=== PATIENT | male | born 1930 | race Caucasian/White ===

== ENCOUNTER → 2017-05-19 | Outpatient (CLI) | payer MEDICARE ==
[2016-08-02 07:10] VITALS: BP 116/63
[~2017-05-19] MED LIST: ASPI-630 PO; CARV25TA PO; COLC0.6T34 PO; ENAL5TAB PO; FURO20TA3 PO; GLIM1TAB2 PO; HYDR-971 PO; LORA10TA3 PO; PRED20TA PO; SIMV20TA3 PO; WARF2.5T71 PO; WARF5TAB7 PO
[2017-05-19 08:33] LABS: ALBUMIN 3.6 g/dL (3.4-5.0); CALCIUM 8.5 mg/dL (8.5-10.1); CREATININE 1.7 mg/dL (0.7-1.3); GFR 38.5; PHOSPHORUS 3.1 mg/dL (2.6-4.7); POTASSIUM 4.2 mmol/L (3.5-5.1)
[2017-05-19 19:13] LABS: CALCIUM PTH 8.8 mg/dL (8.6-10.2); CREATININE PTH 1.54 mg/dL (0.76-1.27); PTH INTACT 118 pg/mL (15-65)
== END | disposition home or self-care (01) ==
LOC: LAB 07:03
PROVIDERS: ATTEND Family Medicine
DX: N25.81 Secondary hyperparathyroidism of renal origin (principal)
CPT/HCPCS: 36415; 80069; 82306; 83970

== ENCOUNTER 2017-06-04 04:54 | Emergency (ER) | payer MEDICARE ==
[2017-06-04 05:05] VITALS: BP 141/93
[2017-06-04] MEDS ORDERED: OXYMETAZOLINE 0.05% NASAL SPRAY 15ML BOTTLE. NS ONE (05:15)
--- NOTE | 2017-06-04 06:02 | PHYS DOC ---
Past History Past Medical History: A-Fib, Anemia, Arthritis, CAD, Cancer, Diabetes, Gallstones, High Cholesterol, Hypertension, Renal Disease, Renal Failure Past Surgical History: Cancer Surgery, Cholecystectomy, Colectomy, Pacemaker, Other Alcohol Use: None Drug Use: None Adult General Chief Complaint Chief Complaint: NOSEBLEED HPI HPI Patient is a 87 year old male who presents with epistaxis. Patient reports 90 minute nosebleed from the left nostril which has slowed considerably but he still has some ongoing bleeding. He does have previous history of epistaxis but does not recall having packing performed in the past. He takes warfarin for atrial fibrillation. Denies any other bleeding including hematuria or hematochezia/melena. Review of Systems Review of Systems Constitutional: Denies fever or chills HENT: Reports epistaxis Respiratory: Denies cough or shortness of breath Cardiovascular: Denies chest pain GI: Denies abdominal pain, nausea, vomiting, bloody stools : Denies hematuria Musculoskeletal: Denies back pain or joint pain Integument: Denies rash Neurologic: Denies headache Current Medications Current Medications Current Medications Medications (Trade) Dose Ordered Sig/Kaleb Start Time Stop Time Status Last Admin Dose Admin Oxymetazoline HCl (Afrin) 2 spray 1X ONCE 06/04/17 05:15 06/04/17 05:42 DC 06/04/17 05:15 2 SPRAY Allergies Allergies Allergies Coded Allergies Type Severity Reaction Last Updated Verified povidone-iodine Allergy Intermediate 08/02/16 Yes Physical Exam Physical Exam Constitutional: Well developed, well nourished, no acute distress, non-toxic appearance. HENT: Normocephalic, atraumatic, bilateral external ears normal, oropharynx moist, tiny amount of blood in the left nare without active bleeding, no blood in posterior oropharynx. Eyes: conjunctiva normal, no discharge. Cardiovascular: RRR, no murmurs, no edema. Lungs & Thorax: LCTAB, no wheezing, no respiratory distress. Abdomen: soft, nontender, nondistended. Skin: Warm, dry, no erythema, no rash. Extremities: No deformity Neurologic: Alert and oriented X 3 Current Patient Data Vital Signs Vital Signs Date Time Temp Pulse Resp B/P (MAP) Pulse Ox O2 Delivery O2 Flow Rate FiO2 06/04/17 05:05 98.3 76 20 97 Room Air EKG EKG [] Radiology/Procedures Radiology/Procedures [] Course & Med Decision Making Course & Med Decision Making Pertinent Labs and Imaging studies reviewed. (See chart for details) The patient presents with epistaxis. Essentially controlled at time of arrival. RN applied Afrin nasal spray and patient held direct pressure for 15 minutes. No evidence of any ongoing bleeding. He feels well and is comfortable with discharge home. His next INR check is scheduled for greater than 1 week from today. Will check INR prior to discharge - 2.4, no need to make any changes at this time. Patient instructed to follow up with primary care in 2-3 days, may require ENT referral if having ongoing problems or recurrence. Instructed not to pick his nose, provided instructions for management of epistaxis if it should recur. He should return to the emergency department for uncontrolled epistaxis or any otherwise worsening condition. Discharged home in stable and improved condition. [] Dragon Disclaimer Dragon Disclaimer This chart was dictated in whole or in part using Voice Recognition software in a busy, high-work load, and often noisy Emergency Department environment. It may contain unintended and wholly unrecognized errors or omissions. Departure Departure: Impression: Primary Impression: Epistaxis Disposition: HOME, SELF-CARE Condition: STABLE Referrals: DMITRY WHITNEY MD (PCP) Patient Instructions: Nosebleed, [id number] Additional Instructions: You were seen in the emergency department today for nosebleed, which stopped. Don't pick your nose. If you have another nosebleed, hold direct pressure for 15 minutes after applying 2 squirts of afrin nasal spray to your nostril. Follow up with primary care doctor in 2-3 days. Come back for uncontrolled nosebleed or otherwise worsening condition. CRISTELA LIZ MD Jun 04, 2017 06:02
== END 2017-06-04 06:25 | disposition home or self-care (01) ==
LOC: ER 04:54
DX: R04.0 Epistaxis (principal); I48.91 Unspecified atrial fibrillation; I25.10 Atherosclerotic heart disease of native coronary artery without angina pectoris; I12.9 Hypertensive chronic kidney disease with stage 1 through stage 4 chronic kidney disease, or unspecified chronic kidney disease; N18.9 Chronic kidney disease, unspecified; E11.22 Type 2 diabetes mellitus with diabetic chronic kidney disease; M19.90 Unspecified osteoarthritis, unspecified site; E78.00 Pure hypercholesterolemia, unspecified; Z86.2 Personal history of diseases of the blood and blood-forming organs and certain disorders involving the immune mechanism; Z95.0 Presence of cardiac pacemaker; Z91.041 Radiographic dye allergy status
CPT/HCPCS: 36415; 85610; 99284

== ENCOUNTER → 2017-09-22 | Outpatient (CLI) | payer MEDICARE ==
[2017-09-22 08:28] LABS: BASO # 0.1 x10^3/uL (0.0-0.2); BASO % 1 % (0-3); EOS # 0.4 x10^3/uL (0.0-0.7); EOS % 5 % (0-3); HEMATOCRIT 42.9 % (39.0-53.0); HEMOGLOBIN 14.6 g/dL (13.0-17.5); LYMPH # 1.3 x10^3/uL (1.0-4.8); LYMPH % 18 % (24-48); MEAN CORPUSCULAR HEMOGLOBIN 30 pg (25-35); MEAN CORPUSCULAR HGB CONC 34 g/dL (31-37); MEAN CORPUSCULAR VOLUME 88 fL (79-100); MONO # 0.6 x10^3/uL (0.0-1.1); MONO % 8 % (0-9); NEUT # 5.1 x10^3uL (1.8-7.7); NEUT % 69 % (31-73); PLATELET COUNT 123 x10^3/uL (140-400); RED BLOOD COUNT 4.86 x10^6/uL (4.30-5.70); RED CELL DISTRIBUTION WIDTH 16.3 % (11.5-14.5); WHITE BLOOD COUNT 7.4 x10^3/uL (4.0-11.0)
[2017-09-22 08:38] LABS: ALBUMIN 3.4 g/dL (3.4-5.0); ALBUMIN/GLOBULIN RATIO 0.9 (1.0-1.7); CALCIUM 8.9 mg/dL (8.5-10.1); CREATININE 1.9 mg/dL (0.7-1.3); GFR 33.9; POTASSIUM 4.4 mmol/L (3.5-5.1)
== END | disposition home or self-care (01) ==
LOC: LAB 06:59
PROVIDERS: ATTEND Family Medicine
DX: E11.69 Type 2 diabetes mellitus with other specified complication (principal)
CPT/HCPCS: 36415; 80053; 85025

== ENCOUNTER → 2017-09-29 | Outpatient (CLI) | payer MEDICARE ==
[2017-09-30 12:08] LABS: HCV ANTIBODY <0.1 s/co ratio (0.0-0.9); HEP A IGM ABDY Negative (Negative)
== END | disposition home or self-care (01) ==
LOC: LAB 07:03
PROVIDERS: ATTEND Family Medicine
DX: E80.6 Other disorders of bilirubin metabolism (principal); Z79.01 Long term (current) use of anticoagulants
CPT/HCPCS: 36415; 80074

== ENCOUNTER → 2017-09-29 | Outpatient (CLI) | payer MEDICARE ==
--- NOTE | 2017-09-29 10:47 | RAD ---
Indication: Abdominal pain. The pancreas was poorly visualized. Aorta shows atherosclerotic changes but is nonaneurysmal. IVC is unremarkable. The liver is normal in size. The gallbladder is surgically absent. No biliary ductal dilatation is seen. The right kidney does contain an approximately 2 cm cyst. The left kidney contains a large approximately 8.8 x 6.9 cm cyst. There is some prominence of the left renal pelvis. No calculi are seen. The spleen is normal in size. There is no ascites. Impression: 1. Status post cholecystectomy. No biliary ductal dilatation is identified. 2. Bilateral renal cysts, largest on the left. No calculi are detected.
== END | disposition home or self-care (01) ==
LOC: US 07:18
PROVIDERS: ATTEND Family Medicine
DX: E80.6 Other disorders of bilirubin metabolism (principal); N28.1 Cyst of kidney, acquired; Z90.49 Acquired absence of other specified parts of digestive tract
CPT/HCPCS: 76700

== ENCOUNTER 2017-12-07 17:35 | Emergency (ER) | payer MEDICARE ==
[~2017-12-07] VITALS: Ht 172.7 cm; Wt 84.8 kg
[~2017-12-07 17:35] MED LIST changes: +WARF-31 PO; -WARF5TAB7 PO
[2017-12-07 18:44] LABS: BASO % 1 % (0-3); EOS # 0.3 x10^3/uL (0.0-0.7); EOS % 4 % (0-3); HEMATOCRIT 41.4 % (39.0-53.0); HEMOGLOBIN 13.9 g/dL (13.0-17.5); LYMPH # 1.3 x10^3/uL (1.0-4.8); LYMPH % 19 % (24-48); MEAN CORPUSCULAR HEMOGLOBIN 30 pg (25-35); MEAN CORPUSCULAR HGB CONC 34 g/dL (31-37); MEAN CORPUSCULAR VOLUME 90 fL (79-100); MONO # 0.6 x10^3/uL (0.0-1.1); MONO % 9 % (0-9); NEUT # 4.9 x10^3uL (1.8-7.7); NEUT % 69 % (31-73); PLATELET COUNT 135 x10^3/uL (140-400); RED BLOOD COUNT 4.62 x10^6/uL (4.30-5.70); RED CELL DISTRIBUTION WIDTH 15.5 % (11.5-14.5); WHITE BLOOD COUNT 7.2 x10^3/uL (4.0-11.0)
[2017-12-07 19:06] LABS: ALBUMIN 3.3 g/dL (3.4-5.0); ALBUMIN/GLOBULIN RATIO 0.9 (1.0-1.7); CALCIUM 8.7 mg/dL (8.5-10.1); CREATININE 1.9 mg/dL (0.7-1.3); GFR 33.9; POTASSIUM 3.8 mmol/L (3.5-5.1); TOTAL BILIRUBIN 1.6 mg/dL (0.2-1.0); TOTAL PROTEIN 6.8 g/dL (6.4-8.2)
[2017-12-07 19:12] LABS: DIG 0.9 ng/dL (0.9-2.0); MAGNESIUM 2.2 mg/dL (1.8-2.4)
[2017-12-07] MEDS ORDERED: IV NORMAL SALINE 1,000ML 1,000 ML IV SCH ×2 (20:00→21:30)
[2017-12-07 21:25] VITALS: BP 132/73
--- NOTE | 2017-12-07 21:39 | EKG ---
[address] [address] Test Date: 2017-12-07 Test Time: 18:15:42 Pat Name: BARRIE ARANA Department: Room: Gender: M Senior Linux Systems Administrator: LIZBETH : [id number] Requested By: VERONICA CRENSHAW Order Number: [id number] Reading MD: Measurements Intervals [place] Rate: 71 P: HI: QRS: -26 QRSD: 76 T: -26 QT: 348 QTc: 382 Interpretive Statements IRREGULAR RHYTHM, NO P-WAVE FOUND VENTRICULAR PREMATURE COMPLEX(ES) LEFTWARD AXIS ST & T ABNORMALITY, CONSIDER INFERIOR ISCHEMIA OR LEFT VENTRICULAR STRAIN ABNORMAL ECG RI6.01 No previous ECG available for comparison
[2017-12-07 22:01] LABS: BACTERIA,URINE 0 /HPF (0-FEW); BILIRUBIN,URINE NEG (NEG); CLARITY,URINE CLEAR; COLOR,URINE YELLOW; GLUCOSE,URINE NEG (NEG); NITRITE,URINE NEG (NEG); SQUAMOUS EPITHELIAL CELL,UR FEW /LPF; UROBILINOGEN,URINE 0.2 mg/dL (0.2 mg/dL); WBC,URINE OCC /HPF (0-4)
--- NOTE | 2017-12-07 22:13 | PHYS DOC ---
General Chief Complaint: WEAKNESS/GENERALIZED Stated Complaint: WEAKNESS Time Seen by MD: 18:17 Source: patient, old records Exam Limitations: no limitations Problems: History of Present Illness Initial Comments 87-year-old male comes private auto complaining of weakness. Patient states that for the past 2 weeks he's been overall feeling weak and tired. He ambulates into the emergency department under his own power using his walker from home. Says he's had decreased urination and somewhat darker urine recently denies any other specific complaints. No chest pain trouble breathing headache focal neurologic deficit fever cough and his vital signs are normal. Timing/Duration: other Severity: mild Modifying Factors: worse with movement, improves with rest Associated Symptoms: weakness Allergies: Coded Allergies: povidone-iodine (Verified Allergy, Intermediate, 08/02/16) Past Medical History Medical History: other (atrial fibrillation, anemia, osteoarthritis, coronary artery disease, colon cancer, diabetes, hyperlipidemia, hypertension, chronic kidney disease) Surgical History: other (colostomy, colectomy, cholecystectomy, pacemaker) Social History Smoker: non-smoker Alcohol: none Drugs: none Review of Systems Constitutional: denies chills, denies diaphoresis, denies fever, malaise, weakness EENTM: denies ear pain, denies nose pain, denies nose congestion, denies throat pain Respiratory: denies cough, denies shortness of breath, denies wheezing Cardiovascular: denies chest pain, denies edema, denies palpitations, denies syncope Gastrointestinal: denies abdominal pain, denies diarrhea, denies nausea, denies vomiting Genitourinary: see HPI, denies dysuria, frequency, denies hematuria, denies pain Musculoskeletal: denies back pain, denies joint swelling, denies neck pain Psychiatric/Neurological: see HPI, denies headache, denies numbness, denies paresthesia Physical Exam General Appearance: WD/WN, no apparent distress Ear, Nose, Throat: hearing grossly normal, normal ENT inspection (dry membranes ), normal pharynx Neck: non-tender, full range of motion, supple Respiratory: normal breath sounds, no respiratory distress Cardiovascular: normal peripheral pulses, regular rate, rhythm Gastrointestinal: normal bowel sounds, non tender, soft Extremities: normal range of motion, non-tender, normal inspection Neurologic/Psychiatric: diamond wheel edger II-XII nml as tested, no motor/sensory deficits, alert, normal mood/affect, oriented x 3 Skin: normal color, warm/dry Orders, Labs, Meds EKG: paced 71bpm interpreted by me. AP chest: Increased perihilar markings with some cephalization and pacemaker noted, essentially unchanged from March 23, 2016 study. Interpreted by me INR 1.5 (subtherapeutic), BUN 27, creatinine 1.9, BNP 1640, digoxin 0.9 Prolonged wait in ED for patient to produce urine, a 1L NS IV bolus given. Patient feeling much better at time he's able to give urine specimen. UA unremarkable. 2208: Patient now sitting up on the bed feeling much better. He is very impatient now wanting to go home. He and his feel that the IV fluids have helped tremendously and he declines any observation admission. IMPRESSION Hypovolemia CKD subtherapeutic INR Departure Time of Disposition: 22:11 Disposition: 01 HOME, SELF-CARE Diagnosis: Weakness, Hypovolemia, Subtherapeutic INR, Condition: IMPROVED Patient Instructions: Dehydration, Elderly, [id number] Additional Instructions: Please review the patient education materials given by ED staff. Increase fluid intake to prevent further dehydration and weakness. Contact your doctor tomorrow regarding your INR to see if a dosage adjustment is indicated. Continue current medications. Return to ED with new or changing symptoms. VERONICA CRENSHAW DO Dec 07, 2017 22:13
--- NOTE | 2017-12-08 08:17 | RAD ---
Single view chest 12/07/2017 Clinical indication: Weakness and shortness of air. Comparison: Chest 03/23/2016. Findings: There are leads overlying the right hemithorax which limits evaluation of the known right midlung pulmonary nodule. Dual lead left chest wall cardiac connection device in similar position. Cardiac and based L silhouettes are unremarkable. Calcified atheromatous disease of the thoracic aorta. There are mediastinal and bilateral parenchymal calcified granulomas. Scattered areas of pleural-parenchymal scarring in both lungs. No pleural effusion, pneumothorax or focal consolidation. Bilateral glenohumeral and acromioclavicular arthrosis with superior migration of the humeral heads suggestive of chronic rotator cuff pathology. Impression: 1. Known right midlung nodule is not well visualized due to overlying leads. Follow-up nonemergent CT chest is recommended to assess for stability. 2. No acute cardiopulmonary abnormality.
== END 2017-12-07 22:25 | disposition home or self-care (01) ==
LOC: ER 17:35
DX: R53.1 Weakness (principal); E86.1 Hypovolemia; I12.9 Hypertensive chronic kidney disease with stage 1 through stage 4 chronic kidney disease, or unspecified chronic kidney disease; N18.9 Chronic kidney disease, unspecified; E78.5 Hyperlipidemia, unspecified; I25.10 Atherosclerotic heart disease of native coronary artery without angina pectoris; I48.91 Unspecified atrial fibrillation; R79.1 Abnormal coagulation profile; M19.90 Unspecified osteoarthritis, unspecified site; E11.22 Type 2 diabetes mellitus with diabetic chronic kidney disease; Z95.0 Presence of cardiac pacemaker; Z91.041 Radiographic dye allergy status
CPT/HCPCS: 36415; 71045; 80053; 80162; 81001; 82550; 83605; 83735; 83880; 84484; 85025; 85610; 85730; 87040; 93005; 96360; 99285-25; J7030

== ENCOUNTER 2018-01-19 16:46 | Emergency (ER) | payer MEDICARE ==
[~2018-01-19] VITALS: Ht 325.1 cm; Wt 85.4 kg
--- NOTE | 2018-01-19 18:03 | RAD ---
Indication: Injury to head, nosebleed, disorientation. TECHNIQUE: CT head without IV contrast COMPARISON: None FINDINGS: No pathologic extra-axial or intra-axial fluid collection. There is mild diffuse cerebral atrophy with ex vacuo dilation of the ventricles. The basal cisterns are within normal limits. No acute intracranial bleed. No focal loss of gregory-white differentiation. Confluent low-attenuation is seen in the periventricular and deep white matter. Visualized orbits are within normal limits. No calvarial fractures. Visualized paranasal sinuses and mastoid air cells are clear. IMPRESSION: 1. No acute intracranial process on this noncontrast CT. 2. Advanced white matter changes likely secondary to chronic microvascular ischemic disease. If concern for acute ischemic stroke is high, please consider MRI brain. Electronically signed by: Marty Campa DO (01/19/2018 6:00 PM) [facility]
--- NOTE | 2018-01-19 18:09 | ED.ADGEN ---
Past History Past Medical History: A-Fib Past Surgical History: Pacemaker Alcohol Use: None Drug Use: None Adult General Chief Complaint Chief Complaint " ....I fell.. tripped elena.. and bumped my nose.. and it got bleeding really well.. I take Aspirin and coumadin..." HPI HPI Patient is a 87 year old male who presents with above hx and complaints of epistaxis. Is no septal hematoma. Appears to have adequate hemostasis was this time. No retropharyngeal bleeding. No other injury. Review of Systems Review of Systems Constitutional: Denies fever or chills [] Eyes: Denies change in visual acuity, redness, or eye pain [] HENT: Denies nasal congestion or sore throat [] Respiratory: Denies cough or shortness of breath [] Cardiovascular: No additional information not addressed in HPI [] GI: Denies abdominal pain, nausea, vomiting, bloody stools or diarrhea [] : Denies dysuria or hematuria [] Musculoskeletal: Denies back pain or joint pain [] Integument: Denies rash or skin lesions [] Neurologic: Denies headache, focal weakness or sensory changes [] Endocrine: Denies polyuria or polydipsia [] All other systems were reviewed and found to be within normal limits, except as documented in this note. Family History Family History Noncontributory Current Medications Current Medications He nursing for home meds Allergies Allergies Allergies Coded Allergies Type Severity Reaction Last Updated Verified povidone-iodine Allergy Intermediate 08/02/16 Yes Physical Exam Physical Exam Constitutional: Well developed, well nourished, no acute distress, non-toxic appearance. [] HENT: Normocephalic, atraumatic, bilateral external ears normal, oropharynx moist, no oral exudates, nose adequate hemostasis at [facility]. No active bleeding. Eyes: PERRLA, EOMI, conjunctiva normal, no discharge. [] Neck: Normal range of motion, no tenderness, supple, no stridor. [] Cardiovascular:Heart rate regular rhythm, no murmur [] Lungs & Thorax: Bilateral breath sounds equal with scattered wheezes auscultation [] Abdomen: Bowel sounds normal, soft, no tenderness, no masses, no pulsatile masses. [] Skin: Warm, dry, no erythema, no rash. [] Back: No tenderness, no CVA tenderness. [] Extremities: No tenderness, no cyanosis, no clubbing, ROM intact, no edema. Arthritic changes Neurologic: Alert and oriented X 3, normal motor function, normal sensory function, no focal deficits noted. [] Psychologic: Affect normal, judgement normal, mood normal. [] Current Patient Data Vital Signs Vital Signs Date Time Temp Pulse Resp B/P (MAP) Pulse Ox O2 Delivery O2 Flow Rate FiO2 01/19/18 20:39 70 18 106/76 (86) 99 Room Air 01/19/18 16:56 98.1 Lab Results Laboratory Tests Test 01/19/18 19:27 Prothrombin Time 29.2 SEC (9.4-11.4) H Prothrombin Time INR 2.9 (0.9-1.1) H EKG EKG [] Radiology/Procedures Radiology/Procedures My interpretation CT shows no shift, mass, edema, bleed, or fracture. Atrophy[] Course & Med Decision Making Course & Med Decision Making Pertinent Labs and Imaging studies reviewed. (See chart for details). Patient is not blow nose. Patient may sniff. Hold Coumadin and aspirin for 48 hours. Follow-up primary care. Follow-up with ENT. Return if any concerns. [] Final Impression Final Impression 1. Contusion and Epistaxis[] Problems: Dragon Disclaimer Dragon Disclaimer This electronic medical record was generated, in whole or in part, using a voice recognition dictation system. MARISSA SOTELO MD Jan 19, 2018 18:08
[2018-01-19 20:39] VITALS: BP 106/76
[2018-01-20 06:03] LABS: HEMOGLOBIN ISTAT 12.2 gm/dL
== END 2018-01-19 20:40 | disposition home or self-care (01) ==
LOC: ER 16:46
DX: R04.0 Epistaxis (principal); S00.93XA Contusion of unspecified part of head, initial encounter; I48.91 Unspecified atrial fibrillation; Z95.0 Presence of cardiac pacemaker; Z91.041 Radiographic dye allergy status; W01.198A Fall on same level from slipping, tripping and stumbling with subsequent striking against other object, initial encounter; Y93.89 Activity, other specified; Y99.8 Other external cause status; Y92.89 Other specified places as the place of occurrence of the external cause
CPT/HCPCS: 36415; 70450; 80047; 85014; 85018; 85610; 99285-25

== ENCOUNTER 2018-04-06 00:32 | Emergency (ER) | payer MEDICARE ==
[~2018-04-06] VITALS: Ht 325.1 cm; Wt 85.4 kg
--- NOTE | 2018-04-06 00:45 | ED.ADGEN ---
Past History Past Medical History: A-Fib, CAD, Cancer, Diabetes, Hypertension Past Surgical History: Colectomy, Pacemaker, Other Alcohol Use: None Drug Use: None Adult General Chief Complaint Chief Complaint ".. I was sleep so comfortable.. then I felt that blood start running down the side of may face and neck.. ".. " I was to come in [address] for a INR.. for Dr. Ortiz. HPI HPI Patient is a 87 year old male who presents with onset of spontaneous nose bleed Rt. nares . Pt. currently on Coumadin. Pt. was due for a check this AM.of his INR. Pt. follows with Dr. Ortiz and Dr. Ceballos. Pt. has hx of HTN, CADz, Colon cancer with resection 2006, and DM. Review of Systems Review of Systems Constitutional: Denies fever or chills [] Eyes: Denies change in visual acuity, redness, or eye pain [] HENT: Denies nasal congestion or sore throat []Complains of Rt. epistaxis. Respiratory: Denies cough or shortness of breath [] Cardiovascular: No additional information not addressed in HPI [] GI: Denies abdominal pain, nausea, vomiting, bloody stools or diarrhea [] : Denies dysuria or hematuria [] Musculoskeletal: Denies back pain or joint pain [] Integument: Denies rash or skin lesions [] Neurologic: Denies headache, focal weakness or sensory changes [] Endocrine: Denies polyuria or polydipsia [] All other systems were reviewed and found to be within normal limits, except as documented in this note. Family History Family History Non-contributory Current Medications Current Medications See Nursing for home meds Allergies Allergies Allergies Coded Allergies Type Severity Reaction Last Updated Verified povidone-iodine Allergy Intermediate 08/02/16 Yes Physical Exam Physical Exam Constitutional: , no acute distress, non-toxic appearance. [] HENT: Normocephalic, atraumatic, bilateral external ears normal, oropharynx moist, no oral exudates, nose has a stable clott rt. nares in [place] area. No bleeding retropharyngeal. Eyes: PERRLA, EOMI, conjunctiva normal, no discharge. [] Neck: Normal range of motion, no tenderness, supple, no stridor. [] Cardiovascular: Irregular rate and rhythm, no murmur []PMI to Lt. Lungs & Thorax: Bilateral breath sounds basilar crackles on auscultation [] Pacer scar. Abdomen: Bowel sounds normal, soft, no tenderness, no masses, no pulsatile masses. [] Colostomy bag Lt. Skin: Warm, dry, no erythema, no rash. [] Back: No tenderness, no CVA tenderness. [] Extremities: No tenderness, no cyanosis, no clubbing, ROM intact, 1+ ankle edema. [] Neurologic: Alert and oriented X 3, normal motor function, normal sensory function, no focal deficits noted. [] Psychologic: Affect anxious, judgement normal, mood normal. [] Current Patient Data Vital Signs Vital Signs Date Time Temp Pulse Resp B/P (MAP) Pulse Ox O2 Delivery O2 Flow Rate FiO2 04/06/18 01:31 70 16 159/80 (106) 98 Room Air 04/06/18 00:36 98.6 Lab Results Laboratory Tests Test 04/06/18 00:46 White Blood Count 6.7 x10^3/uL (4.0-11.0) Red Blood Count 4.49 x10^6/uL (4.30-5.70) Hemoglobin 13.2 g/dL (13.0-17.5) Hematocrit 40.0 % (39.0-53.0) Mean Corpuscular Volume 89 fL (79-100) Mean Corpuscular Hemoglobin 29 pg (25-35) Mean Corpuscular Hemoglobin Concent 33 g/dL (31-37) Red Cell Distribution Width 15.7 % (11.5-14.5) H Platelet Count 132 x10^3/uL (140-400) L Neutrophils (%) (Auto) 64 % (31-73) Lymphocytes (%) (Auto) 21 % (24-48) L Monocytes (%) (Auto) 10 % (0-9) H Eosinophils (%) (Auto) 4 % (0-3) H Basophils (%) (Auto) 1 % (0-3) Neutrophils # (Auto) 4.3 x10^3uL (1.8-7.7) Lymphocytes # (Auto) 1.4 x10^3/uL (1.0-4.8) Monocytes # (Auto) 0.7 x10^3/uL (0.0-1.1) Eosinophils # (Auto) 0.3 x10^3/uL (0.0-0.7) Basophils # (Auto) 0.1 x10^3/uL (0.0-0.2) Prothrombin Time 23.3 SEC (9.4-11.4) H Prothrombin Time INR 2.3 (0.9-1.1) H PTT 34 SEC (23-33) H Sodium Level 138 mmol/L (136-145) Potassium Level 4.5 mmol/L (3.5-5.1) Chloride Level 105 mmol/L (98-107) Carbon Dioxide Level 27 mmol/L (21-32) Anion Gap 6 (6-14) Blood Urea Nitrogen 28 mg/dL (8-26) H Creatinine 2.2 mg/dL (0.7-1.3) H Estimated GFR (Cockcroft-Gault) 28.6 Glucose Level 68 mg/dL (70-99) L Calcium Level 8.5 mg/dL (8.5-10.1) Total Bilirubin 1.3 mg/dL (0.2-1.0) H Direct Bilirubin 0.2 mg/dL (0.0-0.2) Aspartate Amino Transferase (AST) 31 U/L (15-37) Alanine Aminotransferase (ALT) 27 U/L (16-63) Alkaline Phosphatase 96 U/L (46-116) XA-Mva-G-Type Natriuretic Peptide 2151 pg/mL (0-449) H Total Protein 6.5 g/dL (6.4-8.2) Albumin 3.4 g/dL (3.4-5.0) EKG EKG [] Radiology/Procedures Radiology/Procedures Patient declined x-ray-x-ray - has completed past 03/25/2018. [] Pul. nodule ( old finding), cardiomegaly. Pacer, some increased cephalization. DJD Course & Med Decision Making Course & Med Decision Making Pertinent Labs and Imaging studies reviewed. (See chart for details). Reviewed lab findings with patient and daughter. Patient may continue his Coumadin as directed. Would hold aspirin for tomorrow. Apply Polysporin to right naris 4 times a day. Patient to do daily weights. Patient is to take his Lasix this morning . ( 20 mg), then resume his normal schedule of 20 mg Wednesdays and Fridays. Avoid excessive salt. Patient to not blow his nose. He may sniff. Return if any concerns. Patient to keep his follow-up with Dr. Ceballos. Patient concerned over right lung nodule-has been present unchanged from 2016. [] Final Impression Final Impression 1. Epistaxis[]-[place] area right 2. INR 2.3 3. CHF- BNP - 2151 4. Thrombocytopenia - 132 5. Elevated Creat. 2.2 6. Lung Nodule Rt. Lower- stable- no changes Dragon Disclaimer Dragon Disclaimer This electronic medical record was generated, in whole or in part, using a voice recognition dictation system. MARISSA SOTELO MD Apr 06, 2018 00:45
[2018-04-06 00:59] LABS: BASO # 0.1 x10^3/uL (0.0-0.2); BASO % 1 % (0-3); EOS # 0.3 x10^3/uL (0.0-0.7); EOS % 4 % (0-3); HEMOGLOBIN 13.2 g/dL (13.0-17.5); LYMPH # 1.4 x10^3/uL (1.0-4.8); LYMPH % 21 % (24-48); MEAN CORPUSCULAR HEMOGLOBIN 29 pg (25-35); MEAN CORPUSCULAR HGB CONC 33 g/dL (31-37); MEAN CORPUSCULAR VOLUME 89 fL (79-100); MONO # 0.7 x10^3/uL (0.0-1.1); MONO % 10 % (0-9); NEUT # 4.3 x10^3uL (1.8-7.7); NEUT % 64 % (31-73); PLATELET COUNT 132 x10^3/uL (140-400); RED BLOOD COUNT 4.49 x10^6/uL (4.30-5.70); RED CELL DISTRIBUTION WIDTH 15.7 % (11.5-14.5); WHITE BLOOD COUNT 6.7 x10^3/uL (4.0-11.0)
[2018-04-06 01:18] LABS: ALBUMIN 3.4 g/dL (3.4-5.0); CALCIUM 8.5 mg/dL (8.5-10.1); CREATININE 2.2 mg/dL (0.7-1.3); DIRECT BILIRUBIN 0.2 mg/dL (0.0-0.2); GFR 28.6; POTASSIUM 4.5 mmol/L (3.5-5.1); TOTAL BILIRUBIN 1.3 mg/dL (0.2-1.0); TOTAL PROTEIN 6.5 g/dL (6.4-8.2)
[2018-04-06 01:31] VITALS: BP 159/80
== END 2018-04-06 02:07 | disposition home or self-care (01) ==
LOC: ER 00:32
DX: R04.0 Epistaxis (principal); D69.6 Thrombocytopenia, unspecified; R91.1 Solitary pulmonary nodule; R79.89 Other specified abnormal findings of blood chemistry; I11.0 Hypertensive heart disease with heart failure; I50.9 Heart failure, unspecified; I48.91 Unspecified atrial fibrillation; I25.10 Atherosclerotic heart disease of native coronary artery without angina pectoris; E11.9 Type 2 diabetes mellitus without complications; Z95.0 Presence of cardiac pacemaker; Z91.041 Radiographic dye allergy status
CPT/HCPCS: 36415; 80048; 80076; 83880; 85025; 85610; 85730; 99284

== ENCOUNTER → 2018-05-11 | Outpatient (CLI) | payer MEDICARE ==
[2018-05-11 08:33] LABS: BASO # 0.1 x10^3/uL (0.0-0.2); BASO % 1 % (0-3); EOS # 0.3 x10^3/uL (0.0-0.7); EOS % 4 % (0-3); HEMATOCRIT 40.7 % (39.0-53.0); HEMOGLOBIN 13.6 g/dL (13.0-17.5); LYMPH % 15 % (24-48); MEAN CORPUSCULAR HEMOGLOBIN 29 pg (25-35); MEAN CORPUSCULAR HGB CONC 33 g/dL (31-37); MEAN CORPUSCULAR VOLUME 88 fL (79-100); MONO # 0.5 x10^3/uL (0.0-1.1); MONO % 8 % (0-9); NEUT # 4.7 x10^3uL (1.8-7.7); NEUT % 72 % (31-73); PLATELET COUNT 119 x10^3/uL (140-400); RED BLOOD COUNT 4.63 x10^6/uL (4.30-5.70); RED CELL DISTRIBUTION WIDTH 16.6 % (11.5-14.5); WHITE BLOOD COUNT 6.5 x10^3/uL (4.0-11.0)
[2018-05-11 08:38] LABS: CALCIUM 8.9 mg/dL (8.5-10.1); CREATININE 2.1 mg/dL (0.7-1.3); GFR 30.1; MAGNESIUM 1.7 mg/dL (1.8-2.4); POTASSIUM 4.1 mmol/L (3.5-5.1)
== END | disposition home or self-care (01) ==
LOC: LAB 06:52
PROVIDERS: ATTEND Internal Medicine Cardiovascular Disease
DX: I48.2 Chronic atrial fibrillation (principal); I13.0 Hypertensive heart and chronic kidney disease with heart failure and stage 1 through stage 4 chronic kidney disease, or unspecified chronic kidney disease; E11.22 Type 2 diabetes mellitus with diabetic chronic kidney disease; I50.9 Heart failure, unspecified; N18.4 Chronic kidney disease, stage 4 (severe); E78.5 Hyperlipidemia, unspecified; E78.00 Pure hypercholesterolemia, unspecified; K21.9 Gastro-esophageal reflux disease without esophagitis; Z96.653 Presence of artificial knee joint, bilateral; Z87.891 Personal history of nicotine dependence
CPT/HCPCS: 36415; 80048; 83735; 85025

== ENCOUNTER → 2018-06-10 | Outpatient (CLI) | payer MEDICARE ==
[~2018-06-10] MED LIST changes: +ALLO100T PO; +DIGO125T PO; +METO-247 PO; +SERT50TA PO
[2018-06-10 08:27] LABS: BASO % 1 % (0-3); EOS # 0.2 x10^3/uL (0.0-0.7); EOS % 3 % (0-3); HEMATOCRIT 39.9 % (39.0-53.0); LYMPH # 0.9 x10^3/uL (1.0-4.8); LYMPH % 16 % (24-48); MEAN CORPUSCULAR HEMOGLOBIN 29 pg (25-35); MEAN CORPUSCULAR HGB CONC 33 g/dL (31-37); MEAN CORPUSCULAR VOLUME 90 fL (79-100); MONO # 0.5 x10^3/uL (0.0-1.1); MONO % 8 % (0-9); NEUT # 4.2 x10^3uL (1.8-7.7); NEUT % 72 % (31-73); PLATELET COUNT 116 x10^3/uL (140-400); RED BLOOD COUNT 4.43 x10^6/uL (4.30-5.70); RED CELL DISTRIBUTION WIDTH 17.5 % (11.5-14.5); WHITE BLOOD COUNT 5.8 x10^3/uL (4.0-11.0)
[2018-06-10 08:32] LABS: ALBUMIN 3.4 g/dL (3.4-5.0); ALBUMIN/GLOBULIN RATIO 1.1 (1.0-1.7); CALCIUM 8.8 mg/dL (8.5-10.1); CREATININE 1.9 mg/dL (0.7-1.3); GFR 33.8; POTASSIUM 4.5 mmol/L (3.5-5.1); TOTAL BILIRUBIN 2.1 mg/dL (0.2-1.0); TOTAL PROTEIN 6.5 g/dL (6.4-8.2)
== END | disposition home or self-care (01) ==
LOC: LAB 07:08
PROVIDERS: ATTEND Family Medicine
DX: I42.8 Other cardiomyopathies (principal); I13.0 Hypertensive heart and chronic kidney disease with heart failure and stage 1 through stage 4 chronic kidney disease, or unspecified chronic kidney disease; E11.22 Type 2 diabetes mellitus with diabetic chronic kidney disease; I50.9 Heart failure, unspecified; N18.4 Chronic kidney disease, stage 4 (severe); D51.0 Vitamin B12 deficiency anemia due to intrinsic factor deficiency; I25.2 Old myocardial infarction; E78.5 Hyperlipidemia, unspecified; I48.2 Chronic atrial fibrillation; I25.10 Atherosclerotic heart disease of native coronary artery without angina pectoris; E03.9 Hypothyroidism, unspecified; K21.9 Gastro-esophageal reflux disease without esophagitis; E78.00 Pure hypercholesterolemia, unspecified; Z95.5 Presence of coronary angioplasty implant and graft; Z96.653 Presence of artificial knee joint, bilateral; Z87.891 Personal history of nicotine dependence; Z85.038 Personal history of other malignant neoplasm of large intestine; Z90.49 Acquired absence of other specified parts of digestive tract; Z82.49 Family history of ischemic heart disease and other diseases of the circulatory system; Z83.3 Family history of diabetes mellitus
CPT/HCPCS: 36415; 80053; 85025

== ENCOUNTER 2018-06-12 20:25 | Emergency (ER) | payer MEDICARE ==
[~2018-06-12] VITALS: Ht 172.7 cm; Wt 81.4 kg
[2018-06-12 20:25] VITALS: BP 130/85
[~2018-06-12 20:25] MED LIST changes: -ALLO100T PO; -DIGO125T PO; -METO-247 PO; -SERT50TA PO
--- NOTE | 2018-06-12 20:51 | PHYS DOC ---
Past History Past Medical History: A-Fib, CAD, Cancer, Diabetes, Hypertension Past Surgical History: Colectomy, Pacemaker, Other Alcohol Use: None Drug Use: None Adult General Chief Complaint Chief Complaint: POST-OP PROBLEM HPI HPI 88-year-old male presents with report of swelling, bruising, and bleeding from postoperative wound status post pacemaker placement on 05/20/2018. Patient is currently treated with Coumadin. Reports tonight he noticed having some bleeding coming from the upper aspect of the wound. Patient reports the wound is currently still being treated with Steri-Strips. Denies recent trauma. Reports recently had his INR checked on and it was 2.2. Reports compliance with his medications. Reports he the on-call service with cardiology at who instructed patient to present to the ER for evaluation. Review of Systems Review of Systems Constitutional: Denies fever or chills [] Eyes: Denies change in visual acuity, redness, or eye pain [] HENT: Denies nasal congestion or sore throat [] Respiratory: Denies cough or shortness of breath [] Cardiovascular: Denies chest pain, swelling to chest wall at site of pacemaker GI: Denies abdominal pain, nausea, vomiting, or diarrhea [] : Denies dysuria or hematuria [] Musculoskeletal: Denies back pain or joint pain [] Integument: Report bruising; denies laceration Neurologic: Denies headache, focal weakness or sensory changes [] Complete systems were reviewed and found to be within normal limits, except as documented in this note. Allergies Allergies Allergies Coded Allergies Type Severity Reaction Last Updated Verified povidone-iodine Allergy Intermediate 08/02/16 Yes Physical Exam Physical Exam Constitutional: Well developed, well nourished, no acute distress, non-toxic appearance. [] HENT: Normocephalic, atraumatic, Eyes: EOMI, conjunctiva normal, no discharge. [] Neck: Normal range of motion, no tenderness, supple Cardiovascular: Heart rate regular rhythm, no murmur [] Lungs & Thorax: No respiratory distress; postoperative pacemaker site to left anterior chest wall, surrounding ecchymosis, no erythema, fluctuance noted, scant amount of old blood noted to upper medial aspect of wound when site compressed, wound appears otherwise intact with steristrips, nontender to palpation. Skin: Warm, dry, no erythema, no rash, scattered ecchymosis noted to trunk and extremities Back: No tenderness, no CVA tenderness. [] Extremities: No tenderness, ROM intact Neurologic: Alert and oriented X 3, normal motor function, normal sensory function, no focal deficits noted. [] Psychologic: Affect normal, judgement normal, mood normal. [] Current Patient Data Lab Results INR 2.2 Hemoglobin 12.2 down from 13 on 06/10/18. EKG EKG [] Radiology/Procedures Radiology/Procedures [] Course & Med Decision Making Course & Med Decision Making Pertinent Labs and Imaging studies reviewed. (See chart for details) Patient presents with history of present illness and physical exam consistent for postoperative hematoma. Wound currently appears intact with Steri-Strips. Small amount of old blood noted coming from upper medial aspect of wound with compression of area. No signs of surrounding erythema. H/H slightly decreased from prior but still stable. INR in therapeutic range. Compression dressing applied. Patient stable for discharge with outpatient follow-up with PCP/ bag cutter. Discussed findings and plan with patient and family, who acknowledge understanding and agreement. Dragon Disclaimer Dragon Disclaimer This electronic medical record was generated, in whole or in part, using a voice recognition dictation system. Departure Departure: Impression: Primary Impression: Postoperative hematoma Disposition: 01 HOME, SELF-CARE Condition: STABLE Referrals: DMITRY WHITNEY MD (PCP) Patient Instructions: Hematoma, [id number] Additional Instructions: Please continue pressure dressing as educated in the Emergency Department. Problem Qualifiers Primary Impression: Postoperative hematoma Surgical complication system/body Area: subcutaneous tissue Procedure type: non-dermatologic Qualified Codes: L76.32 - Postprocedural hematoma of skin and subcutaneous tissue following other procedure SARY POND DO Jun 12, 2018 20:51
[2018-06-12] MEDS ORDERED: ALLO100T PO (21:21)
[2018-06-12] MEDS ORDERED: METO-247 PO (21:21)
[2018-06-12] MEDS ORDERED: SERT50TA PO (21:21)
[2018-06-12] MEDS ORDERED: DIGO125T PO (21:21)
[2018-06-12 22:01] LABS: BASO # 0.1 x10^3/uL (0.0-0.2); BASO % 1 % (0-3); EOS # 0.3 x10^3/uL (0.0-0.7); EOS % 4 % (0-3); HEMATOCRIT 37.1 % (39.0-53.0); HEMOGLOBIN 12.2 g/dL (13.0-17.5); LYMPH # 1.1 x10^3/uL (1.0-4.8); LYMPH % 17 % (24-48); MEAN CORPUSCULAR HEMOGLOBIN 30 pg (25-35); MEAN CORPUSCULAR HGB CONC 33 g/dL (31-37); MEAN CORPUSCULAR VOLUME 90 fL (79-100); MONO # 0.5 x10^3/uL (0.0-1.1); MONO % 8 % (0-9); NEUT # 4.6 x10^3uL (1.8-7.7); NEUT % 70 % (31-73); PLATELET COUNT 117 x10^3/uL (140-400); RED BLOOD COUNT 4.11 x10^6/uL (4.30-5.70); RED CELL DISTRIBUTION WIDTH 17.4 % (11.5-14.5); WHITE BLOOD COUNT 6.5 x10^3/uL (4.0-11.0)
== END 2018-06-12 22:38 | disposition home or self-care (01) ==
LOC: ER 20:25
DX: L76.32 Postprocedural hematoma of skin and subcutaneous tissue following other procedure (principal); I48.91 Unspecified atrial fibrillation; I25.10 Atherosclerotic heart disease of native coronary artery without angina pectoris; E11.9 Type 2 diabetes mellitus without complications; I10 Essential (primary) hypertension; Z95.0 Presence of cardiac pacemaker; Z91.041 Radiographic dye allergy status
CPT/HCPCS: 36415; 85025; 85610; 85730; 99284

== ENCOUNTER 2018-07-02 16:43 | Inpatient (IN) | payer MEDICARE ==
[~2018-07-02] VITALS: Ht 175.3 cm; Wt 75.1 kg
[~2018-07-02 16:43] MED LIST changes: +ALLO100T PO; +DIGO125T PO; +METO-247 PO; +SERT50TA PO
[2018-07-02 17:27] LABS: BASO % 1 % (0-3); EOS # 0.2 x10^3/uL (0.0-0.7); EOS % 3 % (0-3); HEMATOCRIT 38.7 % (39.0-53.0); LYMPH # 0.9 x10^3/uL (1.0-4.8); LYMPH % 12 % (24-48); MEAN CORPUSCULAR HEMOGLOBIN 30 pg (25-35); MEAN CORPUSCULAR HGB CONC 34 g/dL (31-37); MEAN CORPUSCULAR VOLUME 90 fL (79-100); MONO # 0.6 x10^3/uL (0.0-1.1); MONO % 8 % (0-9); NEUT # 5.5 x10^3uL (1.8-7.7); NEUT % 76 % (31-73); PLATELET COUNT 124 x10^3/uL (140-400); RED BLOOD COUNT 4.32 x10^6/uL (4.30-5.70); RED CELL DISTRIBUTION WIDTH 16.5 % (11.5-14.5); WHITE BLOOD COUNT 7.2 x10^3/uL (4.0-11.0)
--- NOTE | 2018-07-02 17:27 | EKG ---
[address] [address] Test Date: 2018-07-02 Test Time: 16:49:27 Pat Name: BARRIE ARANA Department: Room: Gender: M Shipping Technician: : [id number] Requested By: EMILI CASTANEDA Order Number: [id number] Reading MD: Tristin Correa Measurements Intervals N[place]mith Rate: 64 P: ND: QRS: -71 QRSD: 160 T: 104 QT: 402 QTc: 419 Interpretive Statements DEMAND VENTRICULAR PACED RHYTHM UNDERLYING RHYTHM ATRIAL FIBRILLATION Electronically Signed On 07-06-2018 10:51:43 CDT by Tristin Correa
--- NOTE | 2018-07-02 17:27 | PHYS DOC ---
Past History Past Medical History: A-Fib, Arthritis, CAD, Cancer, Diabetes, High Cholesterol , Hypertension, [place] Past Surgical History: Colectomy, Pacemaker, Other Alcohol Use: None Drug Use: None Adult General Chief Complaint Chief Complaint: CHEST PAIN HPI HPI Patient is a 88 year old male who presents with chest pain. Patient complaining of left lower chest pain since this morning as a constant pain with radiation to left shoulder and associated with shortness of breath and nausea and dizziness and rated his pain 7 . Patient states the pain getting worse with taking deep breaths. Patient had pacemaker battery change at [facility] on May 20 and seen by his physician 3 times regarding edema and swelling of area of surgery and diagnosed with hematoma without having any procedure for removing the blood. Patient currently taking Coumadin. Patient has history of diabetes mellitus, hypertension, dyslipidemia, coronary artery disease. Review of Systems Review of Systems Constitutional: Denies fever or chills [] Eyes: Denies change in visual acuity, redness, or eye pain [] HENT: Denies nasal congestion or sore throat [] Respiratory: Denies cough, reports shortness of breath [] Cardiovascular: No additional information not addressed in HPI [] GI: Denies abdominal pain, nausea, vomiting, bloody stools or diarrhea [] : Denies dysuria or hematuria [] Musculoskeletal: Denies back pain or joint pain [] Integument: Denies rash or skin lesions [] Neurologic: Denies headache, focal weakness or sensory changes [] Endocrine: Denies polyuria or polydipsia [] All other systems were reviewed and found to be within normal limits, except as documented in this note. Current Medications Current Medications Current Medications Medications (Trade) Dose Ordered Sig/[facility] Start Time Stop Time Status Last Admin Dose Admin Aspirin (Children'S Aspirin) 324 mg 1X ONCE 07/02/18 17:30 07/02/18 17:31 Nitroglycerin (Nitrostat) 0.4 mg PRN Q5MIN PRN 07/02/18 17:30 07/03/18 17:29 Allergies Allergies Allergies Coded Allergies Type Severity Reaction Last Updated Verified povidone-iodine Allergy Intermediate 06/12/18 Yes Physical Exam Physical Exam Constitutional: Well developed, well nourished, mild distress, non-toxic appearance. [] HENT: Normocephalic, atraumatic, oropharynx moist, no oral exudates, nose normal. [] Eyes: PERRLA, EOMI, conjunctiva normal, no discharge. [] Neck: Normal range of motion, no tenderness, supple, no stridor. [] Cardiovascular:Heart rate regular rhythm, no murmur [] Lungs & Thorax: Bilateral breath sounds clear to auscultation, left sided pacemaker in place with subcapital nose hematoma and skin erythema Abdomen: Bowel sounds normal, soft, no tenderness, no masses, no pulsatile masses, left colostomy in place. [] Skin: Warm, dry, no erythema, no rash. [] Back: No tenderness, no CVA tenderness. [] Extremities: No tenderness, no cyanosis, no clubbing, ROM intact, no edema. [] Neurologic: Alert and oriented X 3, normal motor function, normal sensory function, no focal deficits noted. [] Psychologic: Affect normal, judgement normal, mood normal. [] EKG EKG EKG interpreted by me. EKG at 1649 showed multiple artifact with sinus rhythm, rate of 64, abnormal left axis deviation, nonspecific intraventricular block, no acute ST and T-wave abnormalities[] Radiology/Procedures Radiology/Procedures [] Course & Med Decision Making Course & Med Decision Making Pertinent Labs and Imaging studies reviewed. (See chart for details) Evolution of patient in ER showed 88-year-old male patient with multiple medical problems and complaining of chest pain since this morning. Patient had left chest wall hematoma after insertion of pacemaker battery and seen by [facility] surgeon without additional intervention. Patient did not want to take fentanyl for his pain in ER. Cardiac enzymes was unremarkable. Plan to admit patient for observation of chest pain. Dragon Disclaimer Dragon Disclaimer This electronic medical record was generated, in whole or in part, using a voice recognition dictation system. Departure Departure: Impression: Primary Impression: Acute chest pain Additional Impressions: Chest wall hematoma Renal insufficiency CHF (congestive heart failure) Anticoagulated on Coumadin Status post colostomy Disposition: 09 ADMITTED INPATIENT (at 1748) Admitting Physician: Hermelinda Garcia Condition: IMPROVED Referrals: DMITRY WHITNEY MD (PCP) Problem Qualifiers EMILI CASTANEDA MD Jul 02, 2018 17:27
[2018-07-02] MEDS ORDERED: ASPIRIN 81 MG TAB.CHEW PO ONE (17:30)
[2018-07-02] MEDS ORDERED: NITROGLYCERIN SUBLINGUAL 0.4 MG BOTTLE OF 25. SL PRN (17:30)
[2018-07-02 17:46] LABS: ALBUMIN 3.2 g/dL (3.4-5.0); ALBUMIN/GLOBULIN RATIO 1.1 (1.0-1.7); CALCIUM 8.4 mg/dL (8.5-10.1); CREATININE 2.1 mg/dL (0.7-1.3); GFR 30.1; POTASSIUM 4.4 mmol/L (3.5-5.1); TOTAL BILIRUBIN 1.6 mg/dL (0.2-1.0); TOTAL PROTEIN 6.1 g/dL (6.4-8.2)
--- NOTE | 2018-07-02 18:23 | RAD ---
AP portable chest radiograph 07/02/2018 Clinical History: Chest pain. An AP erect portable digital radiograph of the chest was obtained. Comparison study is dated 12/07/2017. A pacemaker is unchanged position. The cardiac silhouette is mildly enlarged. The thoracic aorta is mildly tortuous. Atherosclerotic calcification thoracic aorta is seen. No acute pulmonary infiltrate is seen. No pleural effusion or pneumothorax is noted. The osseous structures are unchanged. Impression: No acute abnormality is seen. Electronically signed by: Nathan Hilario MD (07/02/2018 6:19 PM) [facility]
[2018-07-02 19:22] VITALS: BP 139/80
[2018-07-02 23:00] VITALS: BP 112/54
--- NOTE | 2018-07-02 23:00 | NUR ---
The patient, BARRIE ARANA, 88 y/o, M admitted by JEAN GONZALEZ MD, was given written information regarding hospital policies, unit procedures and contact persons. Patient arrived via EMS from the ER, got verbal report from nurse Barboza. Patient is accompanied with his daughter. Patient lives at home alone and takes care of him self. He states that he has had some chest pain only when he takes in a deep breath in. He said it is where his pacemaker is at. Patient states that he has had 3 recent falls. Bed alarm set for safety.Patient has a colostomy bag in place and changes it him self per the daughter. Call light within reach. Valuables were checked and left with patient.
[2018-07-02] MEDS ORDERED: DICL100G18 TP (23:36)
[2018-07-02] MEDS ORDERED: TRAM50TA PO (23:39)
[2018-07-02] MEDS ORDERED: COLC0.6T34 PO (23:40)
[2018-07-02] MEDS ORDERED: ACET500T68 PO (23:42)
[2018-07-02] MEDS ORDERED: DILT180C2 PO (23:43)
[2018-07-02] MEDS ORDERED: FURO20TA3 PO (23:44)
[2018-07-03 05:00] VITALS: BP 137/74
[2018-07-03] MEDS ORDERED: DICLOFENAC SODIUM 1% TOPICAL GEL 100GM TUBE. TP PRN (06:30)
[2018-07-03] MEDS ORDERED: traMADol 50 MG TABLET PO PRN (06:30)
[2018-07-03] MEDS ORDERED: ACETAMINOPHEN 325 MG TABLET PO PRN (06:30)
[2018-07-03 07:00] VITALS: BP 137/74
[2018-07-03] MEDS: ALLOPURINOL 100 MG TABLET. PO SCH (08:14)
[2018-07-03] MEDS: METOPROLOL SUCC 24HR ER 50 MG TAB.ER.24H. PO SCH ×2 (08:15→10:15)
[2018-07-03] MEDS: DIGOXIN 125 MCG TABLET PO SCH ×2 (08:18→10:15)
[2018-07-03] MEDS ORDERED: FUROSEMIDE 20 MG TABLET PO SCH (09:00)
[2018-07-03] MEDS ORDERED: SERT50TA PO (10:00)
[2018-07-03] MEDS: ASPIRIN 81 MG TAB.CHEW PO SCH (10:15)
[2018-07-03 11:03] VITALS: BP 124/73
--- NOTE | 2018-07-03 12:52 | HP ---
ADMIT DATE: 07/03/2018 HISTORY OF PRESENT ILLNESS: The patient is an 88-year-old male patient, who came to the Emergency Room complaining of chest pain that is retrosternal and that is stabbing in nature, worse when taking a deep breath. Apparently when he came to the Emergency Room, the pain was constant, radiating to left shoulder and associated with shortness of breath, nausea, and dizziness. He rated the pain as 7. He stated the pain gets worse when taking a deep breath. The patient has a pacemaker battery changed at [facility] on 05/20/2018 and seen by his physician in 3 times regarding edema and probably hematoma around the pacemaker; however, he does not have any procedure to remove the blood. He continues to be on Coumadin despite bleeding around his pacemaker. PAST SURGICAL HISTORY: Significant for AFib, hypertension, hyperlipidemia, type 2 diabetes. He has had colon cancer, osteoarthritis, atrial fibrillation, and myocardial infarction. He underwent subtotal colectomy and colostomy, AICD placement and percutaneous coronary intervention with stent deployment x 2 according to him. He also had colonoscopy, carpal tunnel release, bilateral cataract extraction, cholecystectomy, and bilateral total knee arthroplasty. ALLERGIES: He is allergic to BETADINE. MEDICATIONS: He is currently on following medications: He is on Coumadin mg daily, digoxin 125 mcg daily, simvastatin 20 mg at bedtime, metoprolol succinate 100 mg daily, acetaminophen 650 mg every 8 hours, sertraline for Zoloft that apparently was stopped, furosemide 20 mg every other day, allopurinol 200 mg daily. FAMILY HISTORY: He has 3 brothers and 2 sisters younger and healthy. He has 1 brother and 2 sisters are . His father in his 80s as well as his mother. The cause of that is not known. SOCIAL HISTORY: He is , has a son and daughter, that his daughter lives nearby and takes care of him. He is an ex-smoker, quit about 30 years ago. He does not drink alcohol or use recreational drugs. He used to be an aircraft armorer. REVIEW OF SYSTEMS: The patient denied any blurring of vision. He has bilateral cataract extraction, but denied any glaucoma or macular degeneration. Denied any earache, tinnitus or sensorineural deafness. Denied any nosebleeds, stuffy nose or postnasal drip. Denied any sore throat, sore tongue, toothache, hoarseness of voice or difficulty swallowing. Denied any nausea, vomiting, diarrhea or constipation. Denied any hematemesis, melena, or hematochezia. He denied any dysuria, frequency or hematuria. Did complain of chest pain that is mostly retrosternal, stabbing in nature, aggravated by taking a deep breath and associated with shortness of breath radiating to the left shoulder. He denied any orthopnea or paroxysmal nocturnal dyspnea. Denied any cough, phlegm, or hemoptysis. Did complain of dizziness, but denied any vertigo. Denied any chills, rigors or fever. PHYSICAL EXAMINATION: GENERAL: When arrival to the Emergency Room, he looked well and was clearly in no apparent respiratory distress. There was no pallor, jaundice, or cyanosis. No lymphadenopathy, no thyromegaly. No jugular venous distension. No lower limb edema. VITAL SIGNS: His heart rate was 63, blood pressure was 125/52, temperature was 98.4, respiratory rate was 22 and oxygen saturation was 97%. HEAD, EYES, EARS, NOSE, and THROAT: Showed he is normocephalic, atraumatic. NECK: Supple. HEART: Showed normal first and second heart sounds with no gallop, rub or murmur. CHEST: Clear to auscultation. No crepitation or rhonchi. ABDOMEN: Distended, soft, nontender. No guarding or rigidity. No organomegaly. All hernial orifice intact. Bowel sounds normal. NEUROLOGIC: He was hard of hearing, but otherwise all cranial nerves intact. EXTREMITIES: He moves extremities without difficulty, ambulates with a walker. LABORATORY DATA: On admission showed a white cell count of 7200, hemoglobin 13, hematocrit 39, MCV 90 and platelet count of 124,000 with normal manual differential. His chemistry showed a serum sodium 141, potassium 4.4, chloride 105, bicarbonate 33, anion gap of 3, BUN 33, creatinine 2.1, estimated GFR was 30 mL per minute. His glucose was 142, calcium was 8.4, magnesium was 2. Total bilirubin slightly elevated at 1.6; however, AST, ALT, alkaline phosphatase were normal. His 3 sets of cardiac enzymes were negative at less than 0.017. His beta natriuretic peptide was 2646. Total protein was 6.1, albumin was 3.2. His serum lipase was 322. His prothrombin time on admission was 28.8, INR of 3. His chest x-ray showed that the pacemaker is unchanged in position. The cardiac silhouette is mildly enlarged. The thoracic aorta is mildly tortuous. Atherosclerotic calcification of thoracic aorta is seen. No acute pulmonary infiltrate is seen. No pleural effusion or pneumothorax noted. The osseous structures are unchanged. IMPRESSION: In summary, this is an 88-year-old male patient, who came with new onset of left-sided chest pain that is stabbing in nature, associated with shortness of breath, radiating to left shoulder. The pain is aggravated by taking a deep breath. He had fallen 3 times; however, all the falls were backward and in fact he hit his head 3 times according to his daughter over the last week. He is on Coumadin and has not stopped Coumadin throughout, so the chances of PE is less likely, although not completely ruled out. He unfortunately has chronic kidney disease and is not a candidate for chest CT with PE protocol. PLAN: My plan is to arrange for him to have a V/Q scan. Rib views of the left side and the CT scan of the chest, abdomen, and pelvis without contrast to see if there is any pathology below the diaphragm causing this left-sided chest pain and radiation to the left shoulder. We will hold his Coumadin at least for now. He has also a hematoma around his pacemaker, although for some reason, the propulsion engineer continued Coumadin without any procedure to remove the blood around his pacemaker. We have already consulted the propulsion engineer and the patient has 3 sets of cardiac enzymes that ruled out myocardial infarction. Obviously pericarditis is a possibility also. Although, the EKG is not going to be informative. His EKG showed that he was multiple artifacts with sinus rhythm, his rate was 64 with abnormal left axis deviation and nonspecific intraventricular block with no acute ST-T changes. JEAN GONZALEZ MD DR: LACHO/kimi JOB#: [id number] / [id number]
--- NOTE | 2018-07-03 14:15 | PDOC2 ---
CONSULT Date of Admission DATE: 07/03/18 TIME: 14:14 Reason for Consult: Chest pain Referring Physician: Dr. Garcia Chief Complaint Chest pain Source: Chart review, Patient Problem List Problems Medical Problems: (1) Acute chest pain Status: Acute (2) Anticoagulated on Coumadin Status: Acute (3) Chest wall hematoma Status: Acute (4) CHF (congestive heart failure) Status: Acute (5) Renal insufficiency Status: Acute Social History Problems: (1) Status post colostomy Status: Acute History of Present Illness 88-year-old male with history of coronary artery disease, ischemic cardiomyopathy s/p AICD implantation with more recent generator change in May 2018 apparently was seen by his mutuel clerk recently at [facility] for pocket hematoma and recommended conservative management. He stated that he has had 3 episodes of falls that all appeared to be mechanical without any loss of consciousness. More recently he started complaining of left-sided chest pain worse with deep inspiration. He denied any orthopnea/PND, palpitations. Past Medical History Coronary artery disease Atrial fibrillation Ischemic cardiomyopathy s/p AICD implantation with more recent generator change (usually followed at [facility], records not available) Hypertension Hyperlipidemia Diabetes mellitus type 2 Osteoarthritis Past Surgical History Colectomy AICD implantation Carpal tunnel release surgery Cataract surgery Cholecystectomy Bilateral knee arthroplasty Family History not contributory Social History Patient quit smoking 30 years ago and denied any alcohol or drug use Current Medications Current Medications Aspirin (Children'S Aspirin) 324 mg 1X ONCE PO ; Start 07/02/18 at 17:30; Stop 07/02/18 at 17:30; Status DC Nitroglycerin (Nitrostat) 0.4 mg PRN Q5MIN PRN SL CP RATING > 1/10; Start 07/02 at 17:30; Stop 07/02/18 at 17:30; Status DC Fentanyl Citrate (Fentanyl 2ml Vial) 50 mcg 1X ONCE IV ; Start 07/02/18 at 17: 45; Stop 07/02/18 at 17:46; Status DC Influenza Virus Vaccine (Afluria Trivalent [id number] Syringe) 0.5 ml ONCE ONCE VAX IM ; Start 07/03/18 at 09:00; Stop 07/03/18 at 09:01; Status DC Diclofenac Sodium (Voltaren) 1 emmanuel PRN BID PRN TP PAIN; Start 07/03/18 at 06:30 Furosemide (Lasix) 20 mg QODAY PO Last administered on 07/03/18at 08:13; Start 07/03/18 at 09:00; Stop 07/03/18 at 09:00; Status DC Tramadol HCl (Ultram) 25 mg PRN QID PRN PO PAIN; Start 07/03/18 at 06:30 Acetaminophen (Tylenol) 650 mg PRN Q8HRS PRN PO PAIN; Start 07/03/18 at 06:30 Allopurinol (Zyloprim) 200 mg DAILY PO Last administered on 07/03/18at 08:14; Start 07/03/18 at 09:00 Digoxin (Lanoxin) 125 mcg DAILY PO Last administered on 07/03/18at 10:15; Start 07/03/18 at 09:00 Diltiazem HCl (Cardizem 24hr Cd) 180 mg DAILY PO Last administered on at 08:13; Start 07/03/18 at 09:00 Metoprolol Succinate (Toprol Xl) 100 mg DAILY PO Last administered on at 10:15; Start 07/03/18 at 09:00 Simvastatin (Zocor) 20 mg HS PO ; Start 07/03/18 at 21:00 Furosemide (Lasix) 20 mg QMWF PO ; Start 07/05/18 at 09:00 Aspirin (Children'S Aspirin) 81 mg DAILYWBKFT PO Last administered on at 10:15; Start 07/03/18 at 10:00 Active Scripts Active Reported Zoloft (Sertraline Hcl) 50 Mg Tablet 1 Tab PO DAILY Furosemide 20 Mg Tablet 1 Tab PO QODAY Acetaminophen 500 Mg Tablet 650 Mg PO Q8HRS PRN Metoprolol Succinate ( Xl ) (Metoprolol Succinate) 100 Mg Tab.er.24h 100 Mg PO DAILY Allopurinol 100 Mg Tablet 200 Mg PO DAILY Digoxin 125 Mcg Tablet 125 Mcg PO DAILY Warfarin Sodium 2.5 Mg Tablet 5 Mg PO DAILY16 blood thinner Simvastatin 20 Mg Tablet 1 Tab PO HS for high cholesterol Allergies: Coded Allergies: povidone-iodine (Verified Allergy, Intermediate, 06/12/18) PSYCHOLOGICAL ROS: No: Hallucinations Eyes: No: Loss of vision HEENT: No: Epistaxis ENDOCRINE: No: Palpitations Respiratory: No: Hemoptysis, Shortness of breath Cardiovascular: yes: Chest Pain Gastrointestinal: No: Vomiting, Diarrhea Genitourinary: No: Henaturia Neurological: No: Seizures Skin: No: Rash General: Alert, No acute distress HEENT: Atraumatic Lungs: Clear to auscultation Heart: Regular rate Abdomen: Soft Extremities: No edema Psych/Mental Status: Mood NL VITALS Vital Signs Date Time Temp Pulse Resp B/P (MAP) Pulse Ox O2 Delivery O2 Flow Rate FiO2 07/03/18 11:03 97.7 80 124/73 (90) 96 07/03/18 08:00 Nasal Cannula 1.0 07/03/18 05:00 18 Labs Laboratory Tests Test 07/02/18 17:10 07/02/18 20:55 07/02/18 23:59 07/03/18 07:06 White Blood Count 7.2 x10^3/uL (4.0-11.0) Red Blood Count 4.32 x10^6/uL (4.30-5.70) Hemoglobin 13.0 g/dL (13.0-17.5) Hematocrit 38.7 % (39.0-53.0) Mean Corpuscular Volume 90 fL (79-100) Mean Corpuscular Hemoglobin 30 pg (25-35) Mean Corpuscular Hemoglobin Concent 34 g/dL (31-37) Red Cell Distribution Width 16.5 % (11.5-14.5) Platelet Count 124 x10^3/uL (140-400) Neutrophils (%) (Auto) 76 % (31-73) Lymphocytes (%) (Auto) 12 % (24-48) Monocytes (%) (Auto) 8 % (0-9) Eosinophils (%) (Auto) 3 % (0-3) Basophils (%) (Auto) 1 % (0-3) Neutrophils # (Auto) 5.5 x10^3uL (1.8-7.7) Lymphocytes # (Auto) 0.9 x10^3/uL (1.0-4.8) Monocytes # (Auto) 0.6 x10^3/uL (0.0-1.1) Eosinophils # (Auto) 0.2 x10^3/uL (0.0-0.7) Basophils # (Auto) 0.0 x10^3/uL (0.0-0.2) Prothrombin Time 28.8 SEC (9.4-11.4) 25.3 SEC (9.4-11.4) Prothromb Time International Ratio 3.0 (0.9-1.1) 2.7 (0.9-1.1) Sodium Level 141 mmol/L (136-145) Potassium Level 4.4 mmol/L (3.5-5.1) Chloride Level 105 mmol/L (98-107) Carbon Dioxide Level 33 mmol/L (21-32) Anion Gap 3 (6-14) Blood Urea Nitrogen 33 mg/dL (8-26) Creatinine 2.1 mg/dL (0.7-1.3) Estimated GFR (Cockcroft-Gault) 30.1 BUN/Creatinine Ratio 16 (6-20) Glucose Level 142 mg/dL (70-99) Calcium Level 8.4 mg/dL (8.5-10.1) Magnesium Level 2.0 mg/dL (1.8-2.4) Total Bilirubin 1.6 mg/dL (0.2-1.0) Aspartate Amino Transf (AST/SGOT) 18 U/L (15-37) Alanine Aminotransferase (ALT/SGPT) 22 U/L (16-63) Alkaline Phosphatase 88 U/L (46-116) Creatine Kinase 120 U/L (39-308) Troponin I Quantitative < 0.017 ng/mL (0-0.055) 0.017 ng/mL (0-0.055) < 0.017 ng/mL (0-0.055) YL-Qct-F-Type Natriuretic Peptide 2646 pg/mL (0-449) Total Protein 6.1 g/dL (6.4-8.2) Albumin 3.2 g/dL (3.4-5.0) Albumin/Globulin Ratio 1.1 (1.0-1.7) Lipase 322 U/L (73-393) Activated Partial Thromboplast Time 41 SEC (23-33) Assessment/Plan 1. Chest pain with atypical features, most probably musculoskeletal and related to recent recurrent falls. Myocardial infarction ruled out. Agree with CT scan for further evaluation. Continue supportive care. 2. Ischemic cardiomyopathy s/p AICD implantation and more recent generator change: Clinically well compensated. Pocket hematoma appears to be stable. Follow-up with primary mutuel clerk upon discharge. 3. Atrial fibrillation: Telemetry and EKG showed ventricular paced rhythm. Patient is adequately anticoagulated with warfarin. 4. Coronary artery disease: Clinically stable. Continue current secondary prevention measures. 5. Hypertension: Controlled 6. Hyperlipidemia: Continue statin therapy Thank you for your consultation AIMEE DAMON MD Jul 03, 2018 14:14
--- NOTE | 2018-07-03 16:12 | RAD ---
CT chest and abdomen without contrast 07/03/2018. Reason for exam: Left-sided pain. History of a fall. Helical noncontrast images were performed through the chest and abdomen. The chest CT is compared with a study of 06/04/2012. The abdomen CT is compared with an exam of 05/10/2009. Exposure: One or more of the following individualized dose reduction techniques were utilized for this examination: 1. Automated exposure control 2. Adjustment of the mA and/or kV according to patient size 3. Use of iterative reconstruction technique. CT chest findings: There is evidence of previous granulomatous infection in the chest. Calcified nodules are again seen bilaterally. A noncalcified nodule in the right lower lobe does not appear significant changed. No new pulmonary parenchymal abnormality is seen. There is no evidence of pneumothorax or pleural effusion. The central airways appear normal. No mediastinal fluid or blood is seen. Bone windows show arthritic changes in the left shoulder. No acute abnormality is seen. IMPRESSION: No acute abnormality in the chest. CT abdomen findings: The liver and spleen are homogeneous in density and normal in configuration. Evaluation of the solid organs is limited without IV contrast. The kidneys again show cysts. One in the lower left kidney has increased significantly in size. It now measures about 8 cm across. No solid mass or obstruction is seen. The adrenal glands and pancreas appear normal. There is no apparent adenopathy or soft tissue mass in the abdomen. An ostomy site is again seen in the left lower abdomen. There is no evidence of obstruction. IMPRESSION: No apparent acute findings. Electronically signed by: Tristen Dasilva Jr., MD (07/03/2018 4:08 PM) [facility]
[2018-07-03 17:17] VITALS: BP 126/68
[2018-07-03 19:00] VITALS: BP 144/65
[2018-07-03] MEDS: SIMVASTATIN 20 MG TABLET PO SCH (20:00)
--- NOTE | 2018-07-03 20:32 | PN ---
DATE: 07/03/2018 SUBJECTIVE: The patient is resting, slightly propped up in bed, in no apparent distress. He denied any chest pain at rest, but when he takes a deep breath, the pain is severe, stabbing. He was extensively investigated yesterday and so far has 3 sets of cardiac enzymes that were negative. His chest x-ray showed no evidence of a pneumothorax, pleural effusion, no acute pulmonary infiltrate. His heart is mildly enlarged. PHYSICAL EXAMINATION: GENERAL: When I examined him this morning, he looked well and was clearly in no apparent respiratory distress. No pallor, jaundice, cyanosis, or thyromegaly. No jugular venous distension. No limb edema. VITAL SIGNS: His heart rate was 80, blood pressure was 137/74, temperature was 97.7, respiratory rate was 18, and oxygen saturation was 96% on room air. HEAD, EYES, EARS, NOSE AND THROAT: Normocephalic, atraumatic. NECK: Supple. HEART: Showed normal first and second sounds. No gallop, rub or murmur. CHEST: Clear to auscultation. No crepitation or rhonchi. The chest pain is not reproducible by palpating or pressing chest wall or rib cage. ABDOMEN: Slightly distended with colostomy in the left lower quadrant. There is no tenderness. No guarding or rigidity. No organomegaly. Hernial orifice intact. Bowel sounds normal. NEUROLOGIC: He was somewhat hard of hearing. Otherwise, cranial nerves intact. He moves extremities without difficulty, ambulates with a walker, although he has multiple falls over the last week. His falls tend to be only backward. He hit his head twice at least by the account of his daughter. There is no trauma to his chest wall. According to his daughter was apparently witnessed all these falls. LABORATORY DATA: His lab work this morning showed his prothrombin time 25.3, INR of 2.7, and aPTT was 41. He has 3 sets of cardiac enzymes showed troponin to be less than 0.017. PLAN: My plan is to arrange for him to have rib views, the left side, and also CT scan of the chest, abdomen and pelvis and await the evaluation by the Cardiology team and his INR is within therapeutic value and he has not stopped his Coumadin, making pulmonary embolism unlikely. The EKG always is uninformative and as far as pericarditis is concerned. JEAN GONZALEZ MD DR: Colby JOB#: [id number] / [id number]
[2018-07-03 23:19] VITALS: BP 133/75
[2018-07-04] VITALS (8 sets, daily range): BP systolic 110–175; BP diastolic 57–90
--- NOTE | 2018-07-04 04:32 | NUR ---
Patient very anxious, up and down all night. Slightly confused to surroundings. Patient reoriented, bed alarm set. Will continue to monitor.
--- NOTE | 2018-07-04 04:55 | NUR ---
Patient very confused, stating that he needs to get things from outside to put up in the barn so they don't get wet. Ordering a UA to check for UTI. Reoriented patient and sat bed alarm.
--- NOTE | 2018-07-04 06:41 | NUR ---
Patient hallucinating this morning seeing yadira. Called Dr. Garcia, new order for a UA noted. Will continue to monitor.
[2018-07-04] MEDS: METOPROLOL SUCC 24HR ER 50 MG TAB.ER.24H. PO SCH (07:55)
[2018-07-04] MEDS: ALLOPURINOL 100 MG TABLET. PO SCH (07:55)
[2018-07-04] MEDS: ASPIRIN 81 MG TAB.CHEW PO SCH (07:56)
[2018-07-04] MEDS: DIGOXIN 125 MCG TABLET PO SCH (07:56)
--- NOTE | 2018-07-04 09:34 | PDOC ---
PROGRESS NOTES Diagnosis Problem Problems Medical Problems: (1) Acute chest pain Status: Acute (2) Anticoagulated on Coumadin Status: Acute (3) Chest wall hematoma Status: Acute (4) CHF (congestive heart failure) Status: Acute (5) Renal insufficiency Status: Acute Social History Problems: (1) Status post colostomy Status: Acute Assessment 1. Chest pain with atypical features, most probably musculoskeletal and related to recent recurrent falls. Myocardial infarction ruled out. CT chest and abdomen did not show any acute process. Continue supportive care. 2. Ischemic cardiomyopathy s/p AICD implantation and more recent generator change: Clinically well compensated. Pocket hematoma appears to be stable. Follow-up with primary welder gas tungsten arc upon discharge. 3. Atrial fibrillation: Telemetry and EKG showed demand ventricular paced rhythm. Patient is adequately anticoagulated with warfarin. 4. Coronary artery disease: Clinically stable. Continue current secondary prevention measures. 5. Hypertension: Controlled 6. Hyperlipidemia: Continue statin therapy Subjective Confused today Objective Vital Signs Date Time Temp Pulse Resp B/P (MAP) Pulse Ox O2 Delivery O2 Flow Rate FiO2 07/04/18 08:06 98.1 88 157/90 (112) 96 Room Air 1.0 07/04/18 05:00 18 Intake and Output 07/04/18 07:00 Intake Total 200 ml Balance 200 ml Intake Oral 200 ml # Voids 4 # Bowel Movements 1 Abdomen: Soft, No tenderness Heart: Other (heart rate is irregular) Extremities: No edema General: No acute distress HEENT: Atraumatic Lungs: Clear to auscultation Neck: Supple Psych/Mental Status: Other (slightly confused) Review of Relevant I have reviewed the following items nasim (where applicable) has been applied. Labs Laboratory Tests Test 07/02/18 17:10 07/02/18 20:55 07/02/18 23:59 07/03/18 07:06 White Blood Count 7.2 x10^3/uL (4.0-11.0) Red Blood Count 4.32 x10^6/uL (4.30-5.70) Hemoglobin 13.0 g/dL (13.0-17.5) Hematocrit 38.7 % (39.0-53.0) Mean Corpuscular Volume 90 fL (79-100) Mean Corpuscular Hemoglobin 30 pg (25-35) Mean Corpuscular Hemoglobin Concent 34 g/dL (31-37) Red Cell Distribution Width 16.5 % (11.5-14.5) Platelet Count 124 x10^3/uL (140-400) Neutrophils (%) (Auto) 76 % (31-73) Lymphocytes (%) (Auto) 12 % (24-48) Monocytes (%) (Auto) 8 % (0-9) Eosinophils (%) (Auto) 3 % (0-3) Basophils (%) (Auto) 1 % (0-3) Neutrophils # (Auto) 5.5 x10^3uL (1.8-7.7) Lymphocytes # (Auto) 0.9 x10^3/uL (1.0-4.8) Monocytes # (Auto) 0.6 x10^3/uL (0.0-1.1) Eosinophils # (Auto) 0.2 x10^3/uL (0.0-0.7) Basophils # (Auto) 0.0 x10^3/uL (0.0-0.2) Prothrombin Time 28.8 SEC (9.4-11.4) 25.3 SEC (9.4-11.4) Prothromb Time International Ratio 3.0 (0.9-1.1) 2.7 (0.9-1.1) Sodium Level 141 mmol/L (136-145) Potassium Level 4.4 mmol/L (3.5-5.1) Chloride Level 105 mmol/L (98-107) Carbon Dioxide Level 33 mmol/L (21-32) Anion Gap 3 (6-14) Blood Urea Nitrogen 33 mg/dL (8-26) Creatinine 2.1 mg/dL (0.7-1.3) Estimated GFR (Cockcroft-Gault) 30.1 BUN/Creatinine Ratio 16 (6-20) Glucose Level 142 mg/dL (70-99) Calcium Level 8.4 mg/dL (8.5-10.1) Magnesium Level 2.0 mg/dL (1.8-2.4) Total Bilirubin 1.6 mg/dL (0.2-1.0) Aspartate Amino Transf (AST/SGOT) 18 U/L (15-37) Alanine Aminotransferase (ALT/SGPT) 22 U/L (16-63) Alkaline Phosphatase 88 U/L (46-116) Creatine Kinase 120 U/L (39-308) Troponin I Quantitative < 0.017 ng/mL (0-0.055) 0.017 ng/mL (0-0.055) < 0.017 ng/mL (0-0.055) RU-Pha-Q-Type Natriuretic Peptide 2646 pg/mL (0-449) Total Protein 6.1 g/dL (6.4-8.2) Albumin 3.2 g/dL (3.4-5.0) Albumin/Globulin Ratio 1.1 (1.0-1.7) Lipase 322 U/L (73-393) Activated Partial Thromboplast Time 41 SEC (23-33) Medications Current Medications Aspirin (Children'S Aspirin) 324 mg 1X ONCE PO ; Start 07/02/18 at 17:30; Stop 07/02/18 at 17:30; Status DC Nitroglycerin (Nitrostat) 0.4 mg PRN Q5MIN PRN SL CP RATING > 1/10; Start 07/02 at 17:30; Stop 07/02/18 at 17:30; Status DC Fentanyl Citrate (Fentanyl 2ml Vial) 50 mcg 1X ONCE IV ; Start 07/02/18 at 17: 45; Stop 07/02/18 at 17:46; Status DC Influenza Virus Vaccine (Afluria Trivalent [id number] Syringe) 0.5 ml ONCE ONCE VAX IM Last administered on 07/03/18at 20:02; Start 07/03/18 at 09:00; Stop at 09:01; Status DC Diclofenac Sodium (Voltaren) 1 emmanuel PRN BID PRN TP PAIN; Start 07/03/18 at 06:30 Furosemide (Lasix) 20 mg QODAY PO Last administered on 07/03/18at 08:13; Start 07/03/18 at 09:00; Stop 07/03/18 at 09:00; Status DC Tramadol HCl (Ultram) 25 mg PRN QID PRN PO PAIN; Start 07/03/18 at 06:30 Acetaminophen (Tylenol) 650 mg PRN Q8HRS PRN PO PAIN; Start 07/03/18 at 06:30 Allopurinol (Zyloprim) 200 mg DAILY PO Last administered on 07/04/18at 07:55; Start 07/03/18 at 09:00 Digoxin (Lanoxin) 125 mcg DAILY PO Last administered on 07/04/18at 07:56; Start 07/03/18 at 09:00 Diltiazem HCl (Cardizem 24hr Cd) 180 mg DAILY PO Last administered on at 08:13; Start 07/03/18 at 09:00; Stop 07/04/18 at 09:04; Status DC Metoprolol Succinate (Toprol Xl) 100 mg DAILY PO Last administered on at 07:55; Start 07/03/18 at 09:00 Simvastatin (Zocor) 20 mg HS PO Last administered on 07/03/18at 20:00; Start at 21:00 Furosemide (Lasix) 20 mg QMWF PO ; Start 07/05/18 at 09:00 Aspirin (Children'S Aspirin) 81 mg DAILYWBKFT PO Last administered on at 07:56; Start 07/03/18 at 10:00 Active Scripts Active Reported Zoloft (Sertraline Hcl) 50 Mg Tablet 1 Tab PO DAILY Furosemide 20 Mg Tablet 1 Tab PO QODAY Acetaminophen 500 Mg Tablet 650 Mg PO Q8HRS PRN Metoprolol Succinate ( Xl ) (Metoprolol Succinate) 100 Mg Tab.er.24h 100 Mg PO DAILY Allopurinol 100 Mg Tablet 200 Mg PO DAILY Digoxin 125 Mcg Tablet 125 Mcg PO DAILY Warfarin Sodium 2.5 Mg Tablet 5 Mg PO DAILY16 blood thinner Simvastatin 20 Mg Tablet 1 Tab PO HS for high cholesterol Vitals/I & O Vital Sign - Last 24 Hours 07/03/18 07/03/18 07/03/18 07/03/18 10:15 10:15 11:03 17:17 Temp 97.7 98.6 Pulse 60 60 80 75 Resp 20 B/P (MAP) 137/74 137/74 124/73 (90) 126/68 (87) Pulse Ox 96 97 07/03/18 07/03/18 07/03/18 07/04/18 19:00 20:00 23:19 05:00 Temp 98.3 98.6 98.1 Pulse 81 66 88 Resp 20 18 18 B/P (MAP) 144/65 (91) 133/75 (94) 157/90 (112) Pulse Ox 93 97 96 O2 Delivery Room Air Room Air Room Air Room Air 07/04/18 07/04/18 07/04/18 07:55 07:56 08:06 Temp 98.1 Pulse 88 88 88 B/P (MAP) 157/90 157/90 157/90 (112) Pulse Ox 96 O2 Delivery Room Air O2 Flow Rate 1.0 Intake and Output 07/03/18 07/03/18 07/04/18 15:00 23:00 07:00 Intake Total 200 ml Balance 200 ml AIMEE DAMON MD Jul 04, 2018 09:34
--- NOTE | 2018-07-04 10:03 | RAD ---
Left RIBS HISTORY: Fall, left-sided rib pain AP and oblique views were taken of the left rib. There is arthritis at the left shoulder with spurring of the femoral head, joint space narrowing at the glenohumeral joint and the rotator cuff degeneration. There is a left-sided pacemaker and pacing leads which partially obscures the ribs. There is a fracture of the anterior fifth rib on the oblique view. No other rib fracture is noted. Is no obvious pneumothorax or pleural effusion. IMPRESSION: 1. Fracture anterior lateral right fifth rib. Electronically signed by: Vladimir Leyva MD (07/04/2018 9:59 AM) [facility]
[2018-07-04 10:16] LABS: BACTERIA,URINE 0 /HPF (0-FEW); BILIRUBIN,URINE NEG (NEG); CLARITY,URINE CLEAR; COLOR,URINE AMBER; GLUCOSE,URINE NEG (NEG); HYALINE CASTS, URINE OCC /HPF; NITRITE,URINE NEG (NEG); SQUAMOUS EPITHELIAL CELL,UR OCC /LPF; UROBILINOGEN,URINE 1 mg/dL (0.2 mg/dL); WBC,URINE RARE /HPF (0-4)
[2018-07-04 10:17] LABS: SPERM,URINE PRESENT /HPF
[2018-07-04] MEDS ORDERED: ACETAMINOPHEN 325 MG TABLET PO PRN (11:45)
[2018-07-04 12:05] LABS: BASO # 0.1 x10^3/uL (0.0-0.2); BASO % 1 % (0-3); EOS # 0.2 x10^3/uL (0.0-0.7); EOS % 2 % (0-3); HEMATOCRIT 36.6 % (39.0-53.0); HEMOGLOBIN 12.2 g/dL (13.0-17.5); LYMPH # 0.9 x10^3/uL (1.0-4.8); LYMPH % 12 % (24-48); MEAN CORPUSCULAR HEMOGLOBIN 30 pg (25-35); MEAN CORPUSCULAR HGB CONC 33 g/dL (31-37); MEAN CORPUSCULAR VOLUME 89 fL (79-100); MONO # 0.7 x10^3/uL (0.0-1.1); MONO % 10 % (0-9); NEUT # 5.4 x10^3uL (1.8-7.7); NEUT % 75 % (31-73); PLATELET COUNT 114 x10^3/uL (140-400); RED CELL DISTRIBUTION WIDTH 15.8 % (11.5-14.5); WHITE BLOOD COUNT 7.2 x10^3/uL (4.0-11.0)
[2018-07-04 12:18] LABS: ALBUMIN 2.8 g/dL (3.4-5.0); ALBUMIN/GLOBULIN RATIO 0.9 (1.0-1.7); CALCIUM 8.5 mg/dL (8.5-10.1); CREATININE 1.7 mg/dL (0.7-1.3); GFR 38.4; POTASSIUM 4.5 mmol/L (3.5-5.1); TOTAL BILIRUBIN 1.7 mg/dL (0.2-1.0)
--- NOTE | 2018-07-04 13:54 | PN ---
DATE: 07/04/2018 SUBJECTIVE: The patient was resting flat in bed comfortably, in no apparent distress. He denied any chest pain. While at rest, when he takes a deep breath, he continued to have the stabbing pain in the left side and we did extensive lab work yesterday including a CT scan of the chest, abdomen and pelvis without contrast and the left side rib view. It showed that the patient has left fifth rib fracture is nondisplaced. The CT scan of the chest, abdomen and pelvis was unremarkable except that he has an enlarged, has a cyst in the left kidney that has increased in size. The nursing staff stated that the patient was very confused last night, hallucinating, thought he was in a bar. PHYSICAL EXAMINATION: GENERAL: When I examined him today, he looked well and was clearly in no apparent respiratory distress. No pallor, jaundice, cyanosis, or thyromegaly. No jugular venous distension. No lower limb edema. VITAL SIGNS: His heart rate was 86, blood pressure was 110/57, temperature was 98, respiratory rate was 20, and oxygen saturation was 95% on room air. In fact, his oxygen saturation was 97% on room air. HEENT: Examination of the head, eyes, ears, nose and throat showed normocephalic, atraumatic. NECK: Supple. HEART: Showed normal first and second heart sounds. No gallop, rub or murmur. CHEST: Clear to auscultation. No crepitation or rhonchi. ABDOMEN: Distended, soft, nontender. No guarding or rigidity. No organomegaly. Hernial orifices are intact and bowel sounds normal. NEUROLOGIC: He was hard of hearing, but otherwise his cranial nerves are intact. EXTREMITIES: He moves extremities without difficulty. He ambulates with a walker. His intake over the last 24 and the output was incompletely recorded. LABORATORY DATA: He apparently has 3 sets of cardiac enzymes that were negative. His prothrombin time was 25.3, INR of 2.7. ASSESSMENT: Left-sided stabbing chest pain most likely due to left fifth rib fracture. Other medical problems include atrial fibrillation, rate controlled, well anticoagulated on Coumadin; hypertension, hyperlipidemia. He has a colon cancer, status post partial colectomy and colostomy, osteoarthritis, history of coronary artery disease, status post percutaneous coronary intervention, and stent deployment x 2. PLAN: My plan is to continue with his current plan of medication. I will order his labs again today and I spoke with him and his daughter and the plan is to discharge him to [facility] tomorrow to continue the process of rehabilitation given that he has fallen 3 times. I would also consult Dr. Mclean as he has been hallucinating. JEAN GONZALEZ MD DR: LACHO/kimi JOB#: [id number] / [id number]
[2018-07-04] MEDS: SIMVASTATIN 20 MG TABLET PO SCH (19:20)
[2018-07-04] MEDS: MIRTAZAPINE 7.5 MG TABLET. PO SCH (20:25)
--- NOTE | 2018-07-04 20:54 | RAD ---
CT HEAD WO CONTRAST Clinical indications: ALTERED MENTAL STATUS, HALLUCINATIONS, CONFUSION Comparison: January 19, 2018. Technique: Noncontrast axial cross sectional scanning of the head was performed. PQRS compliance Statement One or more of the following individualized dose reduction techniques were utilized for this study: 1. Automated exposure control 2. Adjustment of the mA and/or kV according to patient size 3. Use of iterative reconstruction technique Findings: No acute intracranial hemorrhage or midline shift or mass-effect or extra-axial fluid collection is seen. Ventriculomegaly is again evident and unchanged. There is severe bilateral periventricular white matter hypodensity which is unchanged may be secondary to chronic small vessel ischemic disease. No sulci effacement is evident. No skull fracture or pneumocephalus is seen. No opacification of the mastoid sinuses or the paranasal sinuses is seen. The maxillary sinuses are not completely seen in this study. Impression: No acute intracranial hemorrhage is seen. Severe chronic small vessel ischemic disease of the periventricular white matter. Chronic ventriculomegaly is unchanged. Overall stable head CT. Electronically signed by: Imer Trejo MD (07/04/2018 8:50 PM) [id number]
[2018-07-05 05:36] VITALS: BP 140/76
[2018-07-05] MEDS: ASPIRIN 81 MG TAB.CHEW PO SCH (09:08)
[2018-07-05] MEDS: METOPROLOL SUCC 24HR ER 50 MG TAB.ER.24H. PO SCH (09:09)
[2018-07-05] MEDS: ALLOPURINOL 100 MG TABLET. PO SCH (09:10)
[2018-07-05] MEDS: FUROSEMIDE 20 MG TABLET PO SCH ×2 (09:10→16:00)
[2018-07-05] MEDS: DIGOXIN 125 MCG TABLET PO SCH (09:11)
--- NOTE | 2018-07-05 10:45 | PDOC ---
APARNA VERDE TILE EDGER 07/05/18 1045: PROGRESS NOTES Diagnosis Problem Problems Medical Problems: (1) Acute chest pain Status: Acute (2) Anticoagulated on Coumadin Status: Acute (3) Chest wall hematoma Status: Acute (4) CHF (congestive heart failure) Status: Acute (5) Renal insufficiency Status: Acute Social History Problems: (1) Status post colostomy Status: Acute Assessment Problems Medical Problems: (1) Acute chest pain Status: Acute (2) Anticoagulated on Coumadin Status: Acute (3) Chest wall hematoma Status: Acute (4) CHF (congestive heart failure) Status: Acute (5) Renal insufficiency Status: Acute Social History Problems: (1) Status post colostomy Status: Acute 1. Chest pain with atypical features, most consistent with musculoskeletal pain s/p fall. NM ruled out. continue supportive care. Has follow up with primary [place] operator in 2 weeks. 2. Ischemic cardiomyopathy s/p AICD implantation and more recent generator change: Clinically well compensated. Pocket hematoma seems to be resolving. Mild erythema reported by this morning. will add abx. [employer] requested to interrogate device due to 3 x falls since implant. . 3. Atrial fibrillation: v pacing. On warfarin for stroke prophylaxis. May need to consider alternative due to falls. to follow up with primary [place] operator for discussion. 4. Coronary artery disease: Clinically stable. Continue RF reduction. 5. Hypertension: Controlled . continue current medications. 6. Hyperlipidemia: Continue statin Subjective c/o increased tenderness at device pocket. improving CP, no dyspnea. reports confusion and fatigue throughout yesterday improved today. Objective Vital Signs Date Time Temp Pulse Resp B/P (MAP) Pulse Ox O2 Delivery O2 Flow Rate FiO2 07/05/18 09:11 81 140/76 07/05/18 08:40 Room Air 07/05/18 05:36 97.8 18 93 07/04/18 08:06 1.0 Intake and Output 07/05/18 07:00 Intake Total 220 ml Output Total 950 ml Balance -730 ml Intake Oral 220 ml Output Urine Total 950 ml # Voids 3 # Bowel Movements 2 Heart: Normal S1, Normal S2 Extremities: No cyanosis, Normal pulses General: Alert, Oriented X3, Cooperative, mild distress Lungs: Clear to auscultation Neuro: Normal speech Psych/Mental Status: Mental status NL, Mood NL Review of Relevant I have reviewed the following items nasim (where applicable) has been applied. Labs Laboratory Tests Test 07/04/18 09:30 07/04/18 11:55 07/04/18 16:43 Urine Collection Type Unknown Urine Color Siomara Urine Clarity Clear Urine pH 6.0 Urine Specific [place] 1.015 Urine Protein 100 mg/dl (NEG-TRACE) Urine Glucose (UA) Neg mg/dL (NEG) Urine Ketones (Stick) Neg mg/dL (NEG) Urine Blood Small (NEG) Urine Nitrite Neg (NEG) Urine Bilirubin Neg (NEG) Urine Urobilinogen Dipstick 1 mg/dL (0.2 mg/dL) Urine Leukocyte Esterase Neg (NEG) Urine RBC 3-5 /HPF (0-2) Urine WBC Rare /HPF (0-4) Urine Squamous Epithelial Cells Occ /LPF Urine Bacteria 0 /HPF (0-FEW) Urine Hyaline Casts Occ /HPF Urine Sperm Present /HPF White Blood Count 7.2 x10^3/uL (4.0-11.0) Red Blood Count 4.10 x10^6/uL (4.30-5.70) Hemoglobin 12.2 g/dL (13.0-17.5) Hematocrit 36.6 % (39.0-53.0) Mean Corpuscular Volume 89 fL (79-100) Mean Corpuscular Hemoglobin 30 pg (25-35) Mean Corpuscular Hemoglobin Concent 33 g/dL (31-37) Red Cell Distribution Width 15.8 % (11.5-14.5) Platelet Count 114 x10^3/uL (140-400) Neutrophils (%) (Auto) 75 % (31-73) Lymphocytes (%) (Auto) 12 % (24-48) Monocytes (%) (Auto) 10 % (0-9) Eosinophils (%) (Auto) 2 % (0-3) Basophils (%) (Auto) 1 % (0-3) Neutrophils # (Auto) 5.4 x10^3uL (1.8-7.7) Lymphocytes # (Auto) 0.9 x10^3/uL (1.0-4.8) Monocytes # (Auto) 0.7 x10^3/uL (0.0-1.1) Eosinophils # (Auto) 0.2 x10^3/uL (0.0-0.7) Basophils # (Auto) 0.1 x10^3/uL (0.0-0.2) Prothrombin Time 17.6 SEC (9.4-11.4) Prothromb Time International Ratio 1.8 (0.9-1.1) Sodium Level 136 mmol/L (136-145) Potassium Level 4.5 mmol/L (3.5-5.1) Chloride Level 104 mmol/L (98-107) Carbon Dioxide Level 28 mmol/L (21-32) Anion Gap 4 (6-14) Blood Urea Nitrogen 31 mg/dL (8-26) Creatinine 1.7 mg/dL (0.7-1.3) Estimated GFR (Cockcroft-Gault) 38.4 BUN/Creatinine Ratio 18 (6-20) Glucose Level 117 mg/dL (70-99) Calcium Level 8.5 mg/dL (8.5-10.1) Total Bilirubin 1.7 mg/dL (0.2-1.0) Aspartate Amino Transf (AST/SGOT) 16 U/L (15-37) Alanine Aminotransferase (ALT/SGPT) 20 U/L (16-63) Alkaline Phosphatase 78 U/L (46-116) Total Protein 6.0 g/dL (6.4-8.2) Albumin 2.8 g/dL (3.4-5.0) Albumin/Globulin Ratio 0.9 (1.0-1.7) Glucose (Fingerstick) 167 mg/dL (70-99) Medications Current Medications Aspirin (Children'S Aspirin) 324 mg 1X ONCE PO ; Start 07/02/18 at 17:30; Stop 07/02/18 at 17:30; Status DC Nitroglycerin (Nitrostat) 0.4 mg PRN Q5MIN PRN SL CP RATING > 1/10; Start 07/02 at 17:30; Stop 07/02/18 at 17:30; Status DC Fentanyl Citrate (Fentanyl 2ml Vial) 50 mcg 1X ONCE IV ; Start 07/02/18 at 17: 45; Stop 07/02/18 at 17:46; Status DC Influenza Virus Vaccine (Afluria Trivalent [id number] Syringe) 0.5 ml ONCE ONCE VAX IM Last administered on 07/03/18at 20:02; Start 07/03/18 at 09:00; Stop at 09:01; Status DC Diclofenac Sodium (Voltaren) 1 emmanuel PRN BID PRN TP PAIN; Start 07/03/18 at 06:30 Furosemide (Lasix) 20 mg QODAY PO Last administered on 07/03/18at 08:13; Start 07/03/18 at 09:00; Stop 07/03/18 at 09:00; Status DC Tramadol HCl (Ultram) 25 mg PRN QID PRN PO PAIN; Start 07/03/18 at 06:30 Acetaminophen (Tylenol) 650 mg PRN Q8HRS PRN PO PAIN; Start 07/03/18 at 06:30; Stop 07/04/18 at 11:37; Status DC Allopurinol (Zyloprim) 200 mg DAILY PO Last administered on 07/05/18at 09:10; Start 07/03/18 at 09:00 Digoxin (Lanoxin) 125 mcg DAILY PO Last administered on 07/05/18at 09:11; Start 07/03/18 at 09:00 Diltiazem HCl (Cardizem 24hr Cd) 180 mg DAILY PO Last administered on at 08:13; Start 07/03/18 at 09:00; Stop 07/04/18 at 09:04; Status DC Metoprolol Succinate (Toprol Xl) 100 mg DAILY PO Last administered on at 09:09; Start 07/03/18 at 09:00 Simvastatin (Zocor) 20 mg HS PO Last administered on 07/04/18at 19:20; Start at 21:00 Furosemide (Lasix) 20 mg QMWF PO Last administered on 07/05/18at 09:10; Start at 09:00 Aspirin (Children'S Aspirin) 81 mg DAILYWBKFT PO Last administered on at 09:08; Start 07/03/18 at 10:00 Acetaminophen (Tylenol) 650 mg PRN Q4HRS PRN PO PAIN; Start 07/04/18 at 11:45 Mirtazapine (Remeron) 7.5 mg QHS PO Last administered on 07/04/18at 20:25; Start 07/04/18 at 21:00 Olanzapine (ZyPREXA ZYDIS) 1.25 mg PRN Q2HR PRN PO PSYCHOSIS; Start 07/04/18 at 20:00 Active Scripts Active Reported Zoloft (Sertraline Hcl) 50 Mg Tablet 1 Tab PO DAILY Furosemide 20 Mg Tablet 1 Tab PO QODAY Acetaminophen 500 Mg Tablet 650 Mg PO Q8HRS PRN Metoprolol Succinate ( Xl ) (Metoprolol Succinate) 100 Mg Tab.er.24h 100 Mg PO DAILY Allopurinol 100 Mg Tablet 200 Mg PO DAILY Digoxin 125 Mcg Tablet 125 Mcg PO DAILY Warfarin Sodium 2.5 Mg Tablet 5 Mg PO DAILY16 blood thinner Simvastatin 20 Mg Tablet 1 Tab PO HS for high cholesterol Vitals/I & O Vital Sign - Last 24 Hours 07/04/18 07/04/18 07/04/18 07/04/18 15:08 19:10 20:21 22:46 Temp 98.0 98.4 98.2 Pulse 55 64 81 Resp 18 18 18 B/P (MAP) 130/65 (86) 128/80 (96) 175/76 (109) Pulse Ox 99 98 98 O2 Delivery Room Air Room Air Room Air 07/05/18 07/05/18 07/05/18 07/05/18 05:36 08:40 09:09 09:11 Temp 97.8 Pulse 79 81 81 Resp 18 B/P (MAP) 140/76 (97) 140/76 140/76 Pulse Ox 93 O2 Delivery Room Air Room Air Intake and Output 07/04/18 07/04/18 07/05/18 15:00 23:00 07:00 Intake Total 220 ml Output Total 150 ml 800 ml Balance -150 ml -580 ml AIMEE DAMON MD 07/05/18 1708: PROGRESS NOTES Assessment Patient seen and examined. Agree with FAGOT HEATER's assessment and plan Chest pain most probably musculoskeletal Telemetry showed demand ventricle pacing with underlying atrial fibrillation Agree with initiating antibiotics for erythrema around pocket site although patient does not have all the signs of pocket infection. APARNA VERDE APRN Jul 05, 2018 10:45 AIMEE DAMON MD Jul 05, 2018 17:08
[2018-07-05 11:00] VITALS: BP 121/69
[2018-07-05 16:21] VITALS: BP 123/71
--- NOTE | 2018-07-05 16:28 | NUR ---
wound care patient seen per wound care consult. wound assessment completed at this time as the wounds to the right upper arm are scabbed at this time. patient has no open wounds at this time. patient has a red but blanchable left heel a an Aquacel foam applied to this area for prevention. patient has a red but blanchable coccyx, Calazime cream applied at this time. wound care is signing off at this time. please reconsult wound care if the integumentary assessment changes.
[2018-07-05] MEDS ORDERED: FURO20TA3 PO (16:32)
[2018-07-05] MEDS ORDERED: MIRT7.5T8 PO (16:32)
[2018-07-05] MEDS ORDERED: DICL100G18 TP (16:32)
[2018-07-05] MEDS ORDERED: DOXY100T PO (16:32)
[2018-07-05] MEDS ORDERED: TRAM50TA PO (16:32)
[2018-07-05] MEDS ORDERED: ACET325T9 PO (16:32)
--- NOTE | 2018-07-05 16:33 | NUR ---
Lasix Nonadmin Pharmacy contacted to verify frequency of lasix administration and clarified that medication is to be administered once daily on MWF, so second schedule dose of the day held. Pharmacy to correct eMAR. Patient informed
--- NOTE | 2018-07-05 16:46 | PDOC3 ---
Discharge Summary Visit Information Date of Admission: Jul 02, 2018 Date of Discharge: Jul 05, 2018 Admitting Diagnosis: chest pain Final Diagnosis Problems Medical Problems: (1) Acute chest pain Status: Acute (2) Anticoagulated on Coumadin Status: Acute (3) Chest wall hematoma Status: Acute (4) CHF (congestive heart failure) Status: Acute (5) Renal insufficiency Status: Acute Social History Problems: (1) Status post colostomy Status: Acute Brief Hospital Course Allergies Allergies Coded Allergies Type Severity Reaction Last Updated Verified povidone-iodine Allergy Intermediate 06/12/18 Yes Vital Signs Vital Signs Date Time Temp Pulse Resp B/P (MAP) Pulse Ox O2 Delivery O2 Flow Rate FiO2 07/05/18 11:00 97.8 69 18 121/69 (86) 98 Room Air 07/04/18 08:06 1.0 Lab Results Laboratory Tests Test 07/04/18 09:30 07/04/18 11:55 07/04/18 16:43 Urine Collection Type Unknown Urine Color Siomara Urine Clarity Clear Urine pH 6.0 Urine Specific [place] 1.015 Urine Protein 100 mg/dl (NEG-TRACE) Urine Glucose (UA) Neg mg/dL (NEG) Urine Ketones (Stick) Neg mg/dL (NEG) Urine Blood Small (NEG) Urine Nitrite Neg (NEG) Urine Bilirubin Neg (NEG) Urine Urobilinogen Dipstick 1 mg/dL (0.2 mg/dL) Urine Leukocyte Esterase Neg (NEG) Urine RBC 3-5 /HPF (0-2) Urine WBC Rare /HPF (0-4) Urine Squamous Epithelial Cells Occ /LPF Urine Bacteria 0 /HPF (0-FEW) Urine Hyaline Casts Occ /HPF Urine Sperm Present /HPF White Blood Count 7.2 x10^3/uL (4.0-11.0) Red Blood Count 4.10 x10^6/uL (4.30-5.70) Hemoglobin 12.2 g/dL (13.0-17.5) Hematocrit 36.6 % (39.0-53.0) Mean Corpuscular Volume 89 fL (79-100) Mean Corpuscular Hemoglobin 30 pg (25-35) Mean Corpuscular Hemoglobin Concent 33 g/dL (31-37) Red Cell Distribution Width 15.8 % (11.5-14.5) Platelet Count 114 x10^3/uL (140-400) Neutrophils (%) (Auto) 75 % (31-73) Lymphocytes (%) (Auto) 12 % (24-48) Monocytes (%) (Auto) 10 % (0-9) Eosinophils (%) (Auto) 2 % (0-3) Basophils (%) (Auto) 1 % (0-3) Neutrophils # (Auto) 5.4 x10^3uL (1.8-7.7) Lymphocytes # (Auto) 0.9 x10^3/uL (1.0-4.8) Monocytes # (Auto) 0.7 x10^3/uL (0.0-1.1) Eosinophils # (Auto) 0.2 x10^3/uL (0.0-0.7) Basophils # (Auto) 0.1 x10^3/uL (0.0-0.2) Prothrombin Time 17.6 SEC (9.4-11.4) Prothromb Time International Ratio 1.8 (0.9-1.1) Sodium Level 136 mmol/L (136-145) Potassium Level 4.5 mmol/L (3.5-5.1) Chloride Level 104 mmol/L (98-107) Carbon Dioxide Level 28 mmol/L (21-32) Anion Gap 4 (6-14) Blood Urea Nitrogen 31 mg/dL (8-26) Creatinine 1.7 mg/dL (0.7-1.3) Estimated GFR (Cockcroft-Gault) 38.4 BUN/Creatinine Ratio 18 (6-20) Glucose Level 117 mg/dL (70-99) Calcium Level 8.5 mg/dL (8.5-10.1) Total Bilirubin 1.7 mg/dL (0.2-1.0) Aspartate Amino Transf (AST/SGOT) 16 U/L (15-37) Alanine Aminotransferase (ALT/SGPT) 20 U/L (16-63) Alkaline Phosphatase 78 U/L (46-116) Total Protein 6.0 g/dL (6.4-8.2) Albumin 2.8 g/dL (3.4-5.0) Albumin/Globulin Ratio 0.9 (1.0-1.7) Glucose (Fingerstick) 167 mg/dL (70-99) Brief Hospital Course Mr. Hernandez is a 88 old male who presented to the emergency department complaining of chest discomfort most probably musculoskeletal and related to recent recurrent falls as ultimately rib series revealed fracture anterior lateral right fifth rib consistent with his pain complaint. Due to his cardiac history cardiology consultation called and the patient was extensively evaluated , myocardial infarction ruled out CT chest and abdomen did not show any acute process. He has history of ischemic cardiomyopathy s/p AICD implantation and more recent generator change and stable pocket hematoma. Follow-up with primary [facility] sewer upon discharge. Cardiology recommended follow-up with his [facility] sewer as an outpatient and the patient was discharged home. Discharge Information Condition at Discharge: Stable Follow Up: Weeks Disposition/Orders: D/C to Home Dischare Medications Current Medications Aspirin (Children'S Aspirin) 324 mg 1X ONCE PO ; Start 07/02/18 at 17:30; Stop 07/02/18 at 17:30; Status DC Nitroglycerin (Nitrostat) 0.4 mg PRN Q5MIN PRN SL CP RATING > 1/10; Start 07/02 at 17:30; Stop 07/02/18 at 17:30; Status DC Fentanyl Citrate (Fentanyl 2ml Vial) 50 mcg 1X ONCE IV ; Start 07/02/18 at 17: 45; Stop 07/02/18 at 17:46; Status DC Influenza Virus Vaccine (Afluria Trivalent [id number] Syringe) 0.5 ml ONCE ONCE VAX IM Last administered on 07/03/18at 20:02; Start 07/03/18 at 09:00; Stop at 09:01; Status DC Diclofenac Sodium (Voltaren) 1 sharath PRN BID PRN TP PAIN; Start 07/03/18 at 06:30 Furosemide (Lasix) 20 mg QODAY PO Last administered on 07/03/18at 08:13; Start 07/03/18 at 09:00; Stop 07/03/18 at 09:00; Status DC Tramadol HCl (Ultram) 25 mg PRN QID PRN PO PAIN; Start 07/03/18 at 06:30 Acetaminophen (Tylenol) 650 mg PRN Q8HRS PRN PO PAIN; Start 07/03/18 at 06:30; Stop 07/04/18 at 11:37; Status DC Allopurinol (Zyloprim) 200 mg DAILY PO Last administered on 07/05/18at 09:10; Start 07/03/18 at 09:00 Digoxin (Lanoxin) 125 mcg DAILY PO Last administered on 07/05/18at 09:11; Start 07/03/18 at 09:00 Diltiazem HCl (Cardizem 24hr Cd) 180 mg DAILY PO Last administered on at 08:13; Start 07/03/18 at 09:00; Stop 07/04/18 at 09:04; Status DC Metoprolol Succinate (Toprol Xl) 100 mg DAILY PO Last administered on at 09:09; Start 07/03/18 at 09:00 Simvastatin (Zocor) 20 mg HS PO Last administered on 07/04/18at 19:20; Start at 21:00 Furosemide (Lasix) 20 mg QMWF PO Last administered on 07/05/18at 09:10; Start at 09:00; Stop 07/05/18 at 16:34; Status DC Aspirin (Children'S Aspirin) 81 mg DAILYWBKFT PO Last administered on at 09:08; Start 07/03/18 at 10:00 Acetaminophen (Tylenol) 650 mg PRN Q4HRS PRN PO PAIN; Start 07/04/18 at 11:45 Mirtazapine (Remeron) 7.5 mg QHS PO Last administered on 07/04/18at 20:25; Start 07/04/18 at 21:00 Olanzapine (ZyPREXA ZYDIS) 1.25 mg PRN Q2HR PRN PO PSYCHOSIS; Start 07/04/18 at 20:00 Doxycycline Hyclate (Vibra-Tab) 100 mg BID PO ; Start 07/05/18 at 21:00; Stop 07/12/18 at 20:59 Lactobacillus Rhamnosus (Culturelle) 1 cap BID PO ; Start 07/05/18 at 21:00 Furosemide (Lasix) 20 mg QMWF@0900 PO ; Start 07/07/18 at 09:00 Active Scripts Active Furosemide 20 Mg Tablet 20 Mg PO QMWF 30 Days Mirtazapine 7.5 Mg Tablet 7.5 Mg PO QHS 30 Days Tylenol (Acetaminophen) 325 Mg Tablet 650 Mg PO PRN Q4HRS PRN 14 Days Tramadol Hcl (Tramadol HCl) 50 Mg Tablet 25 Mg PO PRN QID PRN 14 Days Voltaren (Diclofenac Sodium) 100 Gm Gel..gram. 1 Sharath TP PRN BID PRN 30 Days Doxycycline Hyclate 100 Mg Tablet 100 Mg PO BID 7 Days Reported Zoloft (Sertraline Hcl) 50 Mg Tablet 1 Tab PO DAILY Furosemide 20 Mg Tablet 1 Tab PO QODAY Acetaminophen 500 Mg Tablet 650 Mg PO Q8HRS PRN Metoprolol Succinate ( Xl ) (Metoprolol Succinate) 100 Mg Tab.er.24h 100 Mg PO DAILY Allopurinol 100 Mg Tablet 200 Mg PO DAILY Digoxin 125 Mcg Tablet 125 Mcg PO DAILY Warfarin Sodium 2.5 Mg Tablet 5 Mg PO DAILY16 blood thinner Simvastatin 20 Mg Tablet 1 Tab PO HS for high cholesterol VERONICA CRENSHAW DO Jul 05, 2018 16:46
--- NOTE | 2018-07-05 17:58 | PDOC ---
Exam Note: Gus Note: Please also refer to the separate dictated note~for this date of service dictated separately.~Patient seen individually. Discussed the patient with Nursing staff reviewed the chart.~Reviewed interim history and current functioning. Reviewed vital signs,~Labs/ Radiology~and current medications noted below. Continue current treatment with the changes noted in the dictated addendum note. late entry for 07/04/18 Assessment: Vital Signs: VS - Last 72 Hours, by Label Date Time Temp Pulse Resp B/P (MAP) Pulse Ox O2 Delivery O2 Flow Rate FiO2 07/05/18 11:00 97.8 69 18 121/69 (86) 98 Room Air 07/05/18 09:11 81 140/76 07/05/18 09:09 81 140/76 07/05/18 08:40 Room Air 07/05/18 05:36 97.8 79 18 140/76 (97) 93 Room Air 07/04/18 22:46 98.2 81 18 175/76 (109) 98 Room Air 07/04/18 20:21 Room Air 07/04/18 19:10 98.4 64 18 128/80 (96) 98 Room Air 07/04/18 15:08 98.0 55 18 130/65 (86) 99 07/04/18 10:14 86 20 110/57 (74) 95 Room Air 07/04/18 10:05 98.0 90 18 113/61 (78) 96 Room Air 07/04/18 10:04 98.4 60 18 117/61 (79) 96 Room Air 07/04/18 08:06 98.1 88 157/90 (112) 96 Room Air 1.0 07/04/18 08:00 Nasal Cannula 1.0 07/04/18 07:56 88 157/90 07/04/18 07:55 88 157/90 07/04/18 05:00 98.1 88 18 157/90 (112) 96 Room Air 07/03/18 23:19 98.6 66 18 133/75 (94) 97 Room Air 07/03/18 20:00 Room Air 07/03/18 19:00 98.3 81 20 144/65 (91) 93 Room Air 07/03/18 17:17 98.6 75 20 126/68 (87) 97 07/03/18 11:03 97.7 80 124/73 (90) 96 9/22/18 10:15 60 137/74 07/03/18 10:15 60 137/74 07/03/18 08:13 60 137/74 07/03/18 08:00 Nasal Cannula 1.0 07/03/18 07:00 97.9 60 137/74 (95) 99 Nasal Cannula 1.0 07/03/18 05:00 97.9 60 18 137/74 (95) 99 Nasal Cannula 1.0 07/02/18 23:00 98.7 67 18 112/54 (73) 95 Nasal Cannula 1.0 07/02/18 20:00 Nasal Cannula 1.0 07/02/18 19:22 98.8 66 20 139/80 (99) 97 Nasal Cannula 1.0 Vital Signs Date Time Temp Pulse Resp B/P (MAP) Pulse Ox O2 Delivery O2 Flow Rate FiO2 07/05/18 11:00 97.8 69 18 121/69 (86) 98 Room Air 07/04/18 08:06 1.0 I&O Intake and Output 07/05/18 07:00 Intake Total 220 ml Output Total 950 ml Balance -730 ml Intake Oral 220 ml Output Urine Total 950 ml # Voids 3 # Bowel Movements 2 Current Medications: Meds: Current Medications Aspirin (Children'S Aspirin) 324 mg 1X ONCE PO ; Start 07/02/18 at 17:30; Stop 07/02/18 at 17:30; Status DC Nitroglycerin (Nitrostat) 0.4 mg PRN Q5MIN PRN SL CP RATING > 1/10; Start 07/02 at 17:30; Stop 07/02/18 at 17:30; Status DC Fentanyl Citrate (Fentanyl 2ml Vial) 50 mcg 1X ONCE IV ; Start 07/02/18 at 17: 45; Stop 07/02/18 at 17:46; Status DC Influenza Virus Vaccine (Afluria Trivalent [id number] Syringe) 0.5 ml ONCE ONCE VAX IM Last administered on 07/03/18at 20:02; Start 07/03/18 at 09:00; Stop at 09:01; Status DC Diclofenac Sodium (Voltaren) 1 sharath PRN BID PRN TP PAIN; Start 07/03/18 at 06:30 Furosemide (Lasix) 20 mg QODAY PO Last administered on 07/03/18at 08:13; Start 07/03/18 at 09:00; Stop 07/03/18 at 09:00; Status DC Tramadol HCl (Ultram) 25 mg PRN QID PRN PO PAIN; Start 07/03/18 at 06:30 Acetaminophen (Tylenol) 650 mg PRN Q8HRS PRN PO PAIN; Start 07/03/18 at 06:30; Stop 07/04/18 at 11:37; Status DC Allopurinol (Zyloprim) 200 mg DAILY PO Last administered on 07/05/18at 09:10; Start 07/03/18 at 09:00 Digoxin (Lanoxin) 125 mcg DAILY PO Last administered on 07/05/18at 09:11; Start 07/03/18 at 09:00 Diltiazem HCl (Cardizem 24hr Cd) 180 mg DAILY PO Last administered on at 08:13; Start 07/03/18 at 09:00; Stop 07/04/18 at 09:04; Status DC Metoprolol Succinate (Toprol Xl) 100 mg DAILY PO Last administered on at 09:09; Start 07/03/18 at 09:00 Simvastatin (Zocor) 20 mg HS PO Last administered on 07/04/18at 19:20; Start at 21:00 Furosemide (Lasix) 20 mg QMWF PO Last administered on 07/05/18at 09:10; Start at 09:00; Stop 07/05/18 at 16:34; Status DC Aspirin (Children'S Aspirin) 81 mg DAILYWBKFT PO Last administered on at 09:08; Start 07/03/18 at 10:00 Acetaminophen (Tylenol) 650 mg PRN Q4HRS PRN PO PAIN; Start 07/04/18 at 11:45 Mirtazapine (Remeron) 7.5 mg QHS PO Last administered on 07/04/18at 20:25; Start 07/04/18 at 21:00 Olanzapine (ZyPREXA ZYDIS) 1.25 mg PRN Q2HR PRN PO PSYCHOSIS; Start 07/04/18 at 20:00 Doxycycline Hyclate (Vibra-Tab) 100 mg BID PO ; Start 07/05/18 at 21:00; Stop 07/12/18 at 20:59 Lactobacillus Rhamnosus (Culturelle) 1 cap BID PO ; Start 07/05/18 at 21:00 Furosemide (Lasix) 20 mg QMWF@0900 PO ; Start 07/07/18 at 09:00 Active Scripts Active Furosemide 20 Mg Tablet 20 Mg PO QMWF 30 Days Mirtazapine 7.5 Mg Tablet 7.5 Mg PO QHS 30 Days Tylenol (Acetaminophen) 325 Mg Tablet 650 Mg PO PRN Q4HRS PRN 14 Days Tramadol Hcl (Tramadol HCl) 50 Mg Tablet 25 Mg PO PRN QID PRN 14 Days Voltaren (Diclofenac Sodium) 100 Gm Gel..gram. 1 Sharath TP PRN BID PRN 30 Days Doxycycline Hyclate 100 Mg Tablet 100 Mg PO BID 7 Days Reported Zoloft (Sertraline Hcl) 50 Mg Tablet 1 Tab PO DAILY Furosemide 20 Mg Tablet 1 Tab PO QODAY Acetaminophen 500 Mg Tablet 650 Mg PO Q8HRS PRN Metoprolol Succinate ( Xl ) (Metoprolol Succinate) 100 Mg Tab.er.24h 100 Mg PO DAILY Allopurinol 100 Mg Tablet 200 Mg PO DAILY Digoxin 125 Mcg Tablet 125 Mcg PO DAILY Warfarin Sodium 2.5 Mg Tablet 5 Mg PO DAILY16 blood thinner Simvastatin 20 Mg Tablet 1 Tab PO HS for high cholesterol I have reviewed the current psychotropics carefully including drug interactions. Risk benefit ratio favors no change other than as noted in my dictated progress note. Diagnosis: Problems: (1) Anxiety disorder (2) Dementia in Alzheimer's disease with delusions (3) Dementia in Alzheimer's disease with delirium (4) Dementia, vascular, with delusions (5) Dementia, vascular, with depression (6) Impulse control disorder MORENO MERCHANT MD Jul 05, 2018 17:57
--- NOTE | 2018-07-05 19:12 | PDOC ---
Exam Note: Gus Note: Please also refer to the separate dictated note~for this date of service dictated separately.~Patient seen individually. Discussed the patient with Nursing staff reviewed the chart.~Reviewed interim history and current functioning. Reviewed vital signs,~Labs/ Radiology~and current medications noted below. Continue current treatment with the changes noted in the dictated addendum note Assessment: Vital Signs: Vital Signs Date Time Temp Pulse Resp B/P (MAP) Pulse Ox O2 Delivery O2 Flow Rate FiO2 07/05/18 16:21 98.1 71 20 123/71 (88) 97 Room Air 07/04/18 08:06 1.0 I&O Intake and Output 07/05/18 07:00 Intake Total 220 ml Output Total 950 ml Balance -730 ml Intake Oral 220 ml Output Urine Total 950 ml # Voids 3 # Bowel Movements 2 Current Medications: Meds: Current Medications Aspirin (Children'S Aspirin) 324 mg 1X ONCE PO ; Start 07/02/18 at 17:30; Stop 07/02/18 at 17:30; Status DC Nitroglycerin (Nitrostat) 0.4 mg PRN Q5MIN PRN SL CP RATING > 1/10; Start 07/02 at 17:30; Stop 07/02/18 at 17:30; Status DC Fentanyl Citrate (Fentanyl 2ml Vial) 50 mcg 1X ONCE IV ; Start 07/02/18 at 17: 45; Stop 07/02/18 at 17:46; Status DC Influenza Virus Vaccine (Afluria Trivalent [id number] Syringe) 0.5 ml ONCE ONCE VAX IM Last administered on 07/03/18at 20:02; Start 07/03/18 at 09:00; Stop at 09:01; Status DC Diclofenac Sodium (Voltaren) 1 sharath PRN BID PRN TP PAIN; Start 07/03/18 at 06:30 Furosemide (Lasix) 20 mg QODAY PO Last administered on 07/03/18at 08:13; Start 07/03/18 at 09:00; Stop 07/03/18 at 09:00; Status DC Tramadol HCl (Ultram) 25 mg PRN QID PRN PO PAIN; Start 07/03/18 at 06:30 Acetaminophen (Tylenol) 650 mg PRN Q8HRS PRN PO PAIN; Start 07/03/18 at 06:30; Stop 07/04/18 at 11:37; Status DC Allopurinol (Zyloprim) 200 mg DAILY PO Last administered on 07/05/18at 09:10; Start 07/03/18 at 09:00 Digoxin (Lanoxin) 125 mcg DAILY PO Last administered on 07/05/18at 09:11; Start 07/03/18 at 09:00 Diltiazem HCl (Cardizem 24hr Cd) 180 mg DAILY PO Last administered on at 08:13; Start 07/03/18 at 09:00; Stop 07/04/18 at 09:04; Status DC Metoprolol Succinate (Toprol Xl) 100 mg DAILY PO Last administered on at 09:09; Start 07/03/18 at 09:00 Simvastatin (Zocor) 20 mg HS PO Last administered on 07/04/18at 19:20; Start at 21:00 Furosemide (Lasix) 20 mg QMWF PO Last administered on 07/05/18at 09:10; Start at 09:00; Stop 07/05/18 at 16:34; Status DC Aspirin (Children'S Aspirin) 81 mg DAILYWBKFT PO Last administered on at 09:08; Start 07/03/18 at 10:00 Acetaminophen (Tylenol) 650 mg PRN Q4HRS PRN PO PAIN; Start 07/04/18 at 11:45 Mirtazapine (Remeron) 7.5 mg QHS PO Last administered on 07/04/18at 20:25; Start 07/04/18 at 21:00 Olanzapine (ZyPREXA ZYDIS) 1.25 mg PRN Q2HR PRN PO PSYCHOSIS; Start 07/04/18 at 20:00 Doxycycline Hyclate (Vibra-Tab) 100 mg BID PO ; Start 07/05/18 at 21:00; Stop 07/12/18 at 20:59 Lactobacillus Rhamnosus (Culturelle) 1 cap BID PO ; Start 07/05/18 at 21:00 Furosemide (Lasix) 20 mg QMWF@0900 PO ; Start 07/07/18 at 09:00 Active Scripts Active Furosemide 20 Mg Tablet 20 Mg PO QMWF 30 Days Mirtazapine 7.5 Mg Tablet 7.5 Mg PO QHS 30 Days Tylenol (Acetaminophen) 325 Mg Tablet 650 Mg PO PRN Q4HRS PRN 14 Days Tramadol Hcl (Tramadol HCl) 50 Mg Tablet 25 Mg PO PRN QID PRN 14 Days Voltaren (Diclofenac Sodium) 100 Gm Gel..gram. 1 Sharath TP PRN BID PRN 30 Days Doxycycline Hyclate 100 Mg Tablet 100 Mg PO BID 7 Days Reported Zoloft (Sertraline Hcl) 50 Mg Tablet 1 Tab PO DAILY Furosemide 20 Mg Tablet 1 Tab PO QODAY Acetaminophen 500 Mg Tablet 650 Mg PO Q8HRS PRN Metoprolol Succinate ( Xl ) (Metoprolol Succinate) 100 Mg Tab.er.24h 100 Mg PO DAILY Allopurinol 100 Mg Tablet 200 Mg PO DAILY Digoxin 125 Mcg Tablet 125 Mcg PO DAILY Warfarin Sodium 2.5 Mg Tablet 5 Mg PO DAILY16 blood thinner Simvastatin 20 Mg Tablet 1 Tab PO HS for high cholesterol I have reviewed the current psychotropics carefully including drug interactions. Risk benefit ratio favors no change other than as noted in my dictated progress note. Diagnosis: Problems: (1) Dementia in Alzheimer's disease with delirium (2) Dementia in Alzheimer's disease with delusions (3) Dementia, vascular, with delusions (4) Dementia, vascular, with depression (5) Impulse control disorder (6) Anxiety disorder MORENO MERCHANT MD Jul 05, 2018 19:12
--- NOTE | 2018-07-05 19:35 | NUR ---
Discharge Planning Notified patient and daughter of discharge to [facility] 07/06 with pickup scheduled at 11am. No further questions or concerns from patient or family.
[2018-07-05 19:42] VITALS: BP 132/74
[2018-07-05] MEDS: LACTOBACILLUS RHAMNOSUS GG 1 CAPSULE. PO SCH (21:24)
[2018-07-05] MEDS: SIMVASTATIN 20 MG TABLET PO SCH (21:25)
[2018-07-05] MEDS: DOXYCYCLINE HYCLATE 100 MG TABLET PO SCH (21:25)
[2018-07-05] MEDS: MIRTAZAPINE 7.5 MG TABLET. PO SCH (21:31)
[2018-07-05 22:28] VITALS: BP 145/66
--- NOTE | 2018-07-05 23:43 | CONS ---
DATE OF CONSULTATION: 07/04/2018 This note covers elements not covered in my initial note of 07/04/2018. The patient is an 88-year-old male seen on [facility], [facility], for a psychiatric consult requested by Dr. Garcia on account of the patient's hallucinations, which were very prominent the previous night. He has been living at home alone with his daughter living close by having repeated falls. Daughter wondered whether the pacemaker battery, which was recently replaced was contributing to the falls. He was having marked insomnia. He was on Coumadin and had also hit his head and I have been asked to consult to assess his confusion, cognition. The patient was seen individually, discussed with nursing staff, reviewed the chart. IDENTIFYING DATA: The patient is an 88-year-old male, who came to the Emergency Room with chest pain that is retrosternal, radiating. While on [facility], he has been extremely confused, hallucinating, at one point, he was talking to the urinal per nursing report. He has not slept at all. He is having chest pain due to fractured ribs consequent to the fall at home. No prior psychiatric symptoms other than some short-term memory deficits. PAST PSYCHIATRIC HISTORY: As above. PAST MEDICAL HISTORY: Positive for atrial fibrillation, hypertension, hyperlipidemia, type 2 diabetes mellitus, colon cancer, has a colostomy, osteoarthritis, atrial fibrillation, myocardial infarction, history of subtotal colectomy, colostomy, percutaneous coronary intervention, stent deployment x 2, colonoscopy, carpal tunnel disease, bilateral cataract extraction, cholecystectomy, bilateral total knee arthroplasty. ALLERGIES: BETADINE. CURRENT PSYCHOTROPICS: EMRAD was reviewed. Zoloft was discontinued, which he was taking prior to admission. SOCIAL HISTORY: Lives at home. Daughter lives close by. He is a retired [employer]. FAMILY HISTORY: Noncontributory for psychiatric reasons. SOCIAL HISTORY: No alcohol or drug abuse history. MENTAL STATUS EXAMINATION: The patient was seen individually in the evening of 07/04/2018. The patient thought the year was 1818, then corrected it to 191 then said it was 2020. He is unable to name the president and when I questioned him, he said "oh brother" recognizing the fact that he did not know him. Unable to do serial 7's. Attention span short. Mood and affect somewhat anxious, labile. No suicidal or homicidal ideation. LABORATORY DATA: Reviewed. IMPRESSION: Delirium due to general medical condition, major neurocognitive disorder, early vascular with delusions, anxiety disorder, unspecified. PLAN: The patient has not had a CT head. He is on blood-thinners and has had falls at home. We will check a CT head. Start Remeron 7.5 mg p.o. at bedtime to help with insomnia and Zyprexa 1.25 mg q. 2 hours p.r.n. psychosis, agitation, max 7.5 mg in 24 hours. I would be happy to follow the patient. Dr. Garcia, thank you for the opportunity to participate in your patient's care. We will follow with you. MORENO MERCHANT MD DR: RADHA/kimi JOB#: [id number] / [id number]
[2018-07-06 05:22] VITALS: BP 127/74
[2018-07-06] MEDS: LACTOBACILLUS RHAMNOSUS GG 1 CAPSULE. PO SCH (08:47)
[2018-07-06] MEDS: DOXYCYCLINE HYCLATE 100 MG TABLET PO SCH (08:47)
[2018-07-06] MEDS: ALLOPURINOL 100 MG TABLET. PO SCH (08:47)
[2018-07-06] MEDS: ASPIRIN 81 MG TAB.CHEW PO SCH (08:47)
[2018-07-06] MEDS: DIGOXIN 125 MCG TABLET PO SCH (08:47)
[2018-07-06] MEDS: METOPROLOL SUCC 24HR ER 50 MG TAB.ER.24H. PO SCH (08:47)
--- NOTE | 2018-07-06 09:04 | PDOC ---
PROGRESS NOTES Diagnosis Problem Problems Medical Problems: (1) Acute chest pain Status: Acute (2) Anticoagulated on Coumadin Status: Acute (3) Chest wall hematoma Status: Acute (4) CHF (congestive heart failure) Status: Acute (5) Renal insufficiency Status: Acute Social History Problems: (1) Status post colostomy Status: Acute Assessment Problems Medical Problems: (1) Acute chest pain Status: Acute (2) Anticoagulated on Coumadin Status: Acute (3) Chest wall hematoma Status: Acute (4) CHF (congestive heart failure) Status: Acute (5) Renal insufficiency Status: Acute Social History Problems: (1) Status post colostomy Status: Acute 1. Chest pain with atypical features, most consistent with musculoskeletal pain s/p fall. [place] ruled out. continue supportive care. Ok for discharge from CV standpoint. Keep follow up with primary senior writer in 2 weeks. 2. Ischemic cardiomyopathy s/p AICD implantation and more recent generator change: Clinically well compensated. Pocket hematoma seems to be resolving. Site erythema and tenderness, Abx started yesterday for 1 week course. Follow up with primary senior writer as scheduled. [employer] requested to interrogate device due to 3 x falls since implant and completed without any significant abn. 3. Atrial fibrillation: v pacing. Long discussion with patient and daughter re: stroke risk and risk of bleed secondary to recurrent falls. [id number]. May need to consider alternative due to falls. They acknowledge risks associated with falls but would like to continue anticoagulation until they are able to discuss with primary senior writer. Lovenox ordered at renal dosing until INR >/=2.0 Home warfarin dosing resumed and INR should be checked Thursday and then weekly to maintain between 2-3. 4. Coronary artery disease: Clinically stable. Continue RF reduction. 5. Hypertension: Controlled . continue current medications. 6. Hyperlipidemia: Continue statin Will sign off, call with any questions or concerns. Keep scheduled follow up with primary senior writer on 07/21/18. Subjective no new complaints, no chest pain, no dyspnea, no palpitations Objective Vital Signs Date Time Temp Pulse Resp B/P (MAP) Pulse Ox O2 Delivery O2 Flow Rate FiO2 07/06/18 08:47 84 127/74 07/06/18 08:12 Room Air 07/06/18 05:22 97.6 22 97 07/04/18 08:06 1.0 Intake and Output 07/06/18 07:00 Intake Total 540 ml Output Total 800 ml Balance -260 ml Intake Oral 540 ml Output Urine Total 800 ml # Voids 3 # Bowel Movements 1 Abdomen: Normal bowel sounds, Soft, No tenderness Heart: Normal S1, Normal S2, Other (no gallops, clicks or rubs) General: Alert, Oriented X3, Cooperative, No acute distress HEENT: Atraumatic, EOMI, Mucous membr. moist/pink Lungs: Clear to auscultation Neuro: Normal speech, Strength at 5/5 X4 ext Psych/Mental Status: Mental status NL, Mood NL Review of Relevant I have reviewed the following items nasim (where applicable) has been applied. Labs Laboratory Tests Test 07/04/18 09:30 07/04/18 11:55 07/04/18 16:43 07/05/18 20:19 Urine Collection Type Unknown Urine Color Siomara Urine Clarity Clear Urine pH 6.0 Urine Specific [place] 1.015 Urine Protein 100 mg/dl (NEG-TRACE) Urine Glucose (UA) Neg mg/dL (NEG) Urine Ketones (Stick) Neg mg/dL (NEG) Urine Blood Small (NEG) Urine Nitrite Neg (NEG) Urine Bilirubin Neg (NEG) Urine Urobilinogen Dipstick 1 mg/dL (0.2 mg/dL) Urine Leukocyte Esterase Neg (NEG) Urine RBC 3-5 /HPF (0-2) Urine WBC Rare /HPF (0-4) Urine Squamous Epithelial Cells Occ /LPF Urine Bacteria 0 /HPF (0-FEW) Urine Hyaline Casts Occ /HPF Urine Sperm Present /HPF White Blood Count 7.2 x10^3/uL (4.0-11.0) Red Blood Count 4.10 x10^6/uL (4.30-5.70) Hemoglobin 12.2 g/dL (13.0-17.5) Hematocrit 36.6 % (39.0-53.0) Mean Corpuscular Volume 89 fL (79-100) Mean Corpuscular Hemoglobin 30 pg (25-35) Mean Corpuscular Hemoglobin Concent 33 g/dL (31-37) Red Cell Distribution Width 15.8 % (11.5-14.5) Platelet Count 114 x10^3/uL (140-400) Neutrophils (%) (Auto) 75 % (31-73) Lymphocytes (%) (Auto) 12 % (24-48) Monocytes (%) (Auto) 10 % (0-9) Eosinophils (%) (Auto) 2 % (0-3) Basophils (%) (Auto) 1 % (0-3) Neutrophils # (Auto) 5.4 x10^3uL (1.8-7.7) Lymphocytes # (Auto) 0.9 x10^3/uL (1.0-4.8) Monocytes # (Auto) 0.7 x10^3/uL (0.0-1.1) Eosinophils # (Auto) 0.2 x10^3/uL (0.0-0.7) Basophils # (Auto) 0.1 x10^3/uL (0.0-0.2) Prothrombin Time 17.6 SEC (9.4-11.4) Prothromb Time International Ratio 1.8 (0.9-1.1) Sodium Level 136 mmol/L (136-145) Potassium Level 4.5 mmol/L (3.5-5.1) Chloride Level 104 mmol/L (98-107) Carbon Dioxide Level 28 mmol/L (21-32) Anion Gap 4 (6-14) Blood Urea Nitrogen 31 mg/dL (8-26) Creatinine 1.7 mg/dL (0.7-1.3) Estimated GFR (Cockcroft-Gault) 38.4 BUN/Creatinine Ratio 18 (6-20) Glucose Level 117 mg/dL (70-99) Calcium Level 8.5 mg/dL (8.5-10.1) Total Bilirubin 1.7 mg/dL (0.2-1.0) Aspartate Amino Transf (AST/SGOT) 16 U/L (15-37) Alanine Aminotransferase (ALT/SGPT) 20 U/L (16-63) Alkaline Phosphatase 78 U/L (46-116) Total Protein 6.0 g/dL (6.4-8.2) Albumin 2.8 g/dL (3.4-5.0) Albumin/Globulin Ratio 0.9 (1.0-1.7) Glucose (Fingerstick) 167 mg/dL (70-99) 158 mg/dL (70-99) Medications Current Medications Aspirin (Children'S Aspirin) 324 mg 1X ONCE PO ; Start 07/02/18 at 17:30; Stop 07/02/18 at 17:30; Status DC Nitroglycerin (Nitrostat) 0.4 mg PRN Q5MIN PRN SL CP RATING > 1/10; Start 07/02 at 17:30; Stop 07/02/18 at 17:30; Status DC Fentanyl Citrate (Fentanyl 2ml Vial) 50 mcg 1X ONCE IV ; Start 07/02/18 at 17: 45; Stop 07/02/18 at 17:46; Status DC Influenza Virus Vaccine (Afluria Trivalent [id number] Syringe) 0.5 ml ONCE ONCE VAX IM Last administered on 07/03/18at 20:02; Start 07/03/18 at 09:00; Stop at 09:01; Status DC Diclofenac Sodium (Voltaren) 1 sharath PRN BID PRN TP PAIN; Start 07/03/18 at 06:30 Furosemide (Lasix) 20 mg QODAY PO Last administered on 07/03/18at 08:13; Start 07/03/18 at 09:00; Stop 07/03/18 at 09:00; Status DC Tramadol HCl (Ultram) 25 mg PRN QID PRN PO PAIN; Start 07/03/18 at 06:30 Acetaminophen (Tylenol) 650 mg PRN Q8HRS PRN PO PAIN; Start 07/03/18 at 06:30; Stop 07/04/18 at 11:37; Status DC Allopurinol (Zyloprim) 200 mg DAILY PO Last administered on 07/06/18at 08:47; Start 07/03/18 at 09:00 Digoxin (Lanoxin) 125 mcg DAILY PO Last administered on 07/06/18at 08:47; Start 07/03/18 at 09:00 Diltiazem HCl (Cardizem 24hr Cd) 180 mg DAILY PO Last administered on at 08:13; Start 07/03/18 at 09:00; Stop 07/04/18 at 09:04; Status DC Metoprolol Succinate (Toprol Xl) 100 mg DAILY PO Last administered on at 08:47; Start 07/03/18 at 09:00 Simvastatin (Zocor) 20 mg HS PO Last administered on 07/05/18at 21:25; Start at 21:00 Furosemide (Lasix) 20 mg QMWF PO Last administered on 07/05/18at 09:10; Start at 09:00; Stop 07/05/18 at 16:34; Status DC Aspirin (Children'S Aspirin) 81 mg DAILYWBKFT PO Last administered on at 08:47; Start 07/03/18 at 10:00 Acetaminophen (Tylenol) 650 mg PRN Q4HRS PRN PO PAIN; Start 07/04/18 at 11:45 Mirtazapine (Remeron) 7.5 mg QHS PO Last administered on 07/05/18at 21:31; Start 07/04/18 at 21:00 Olanzapine (ZyPREXA ZYDIS) 1.25 mg PRN Q2HR PRN PO PSYCHOSIS; Start 07/04/18 at 20:00 Doxycycline Hyclate (Vibra-Tab) 100 mg BID PO Last administered on 07/06/18at 08 :47; Start 07/05/18 at 21:00; Stop 07/12/18 at 20:59 Lactobacillus Rhamnosus (Culturelle) 1 cap BID PO Last administered on at 08:47; Start 07/05/18 at 21:00 Furosemide (Lasix) 20 mg QMWF@0900 PO ; Start 07/07/18 at 09:00 Active Scripts Active Furosemide 20 Mg Tablet 20 Mg PO QMWF 30 Days Mirtazapine 7.5 Mg Tablet 7.5 Mg PO QHS 30 Days Tylenol (Acetaminophen) 325 Mg Tablet 650 Mg PO PRN Q4HRS PRN 14 Days Tramadol Hcl (Tramadol HCl) 50 Mg Tablet 25 Mg PO PRN QID PRN 14 Days Voltaren (Diclofenac Sodium) 100 Gm Gel..gram. 1 Sharath TP PRN BID PRN 30 Days Doxycycline Hyclate 100 Mg Tablet 100 Mg PO BID 7 Days Reported Zoloft (Sertraline Hcl) 50 Mg Tablet 1 Tab PO DAILY Furosemide 20 Mg Tablet 1 Tab PO QODAY Acetaminophen 500 Mg Tablet 650 Mg PO Q8HRS PRN Metoprolol Succinate ( Xl ) (Metoprolol Succinate) 100 Mg Tab.er.24h 100 Mg PO DAILY Allopurinol 100 Mg Tablet 200 Mg PO DAILY Digoxin 125 Mcg Tablet 125 Mcg PO DAILY Warfarin Sodium 2.5 Mg Tablet 5 Mg PO DAILY16 blood thinner Simvastatin 20 Mg Tablet 1 Tab PO HS for high cholesterol Vitals/I & O Vital Sign - Last 24 Hours 07/05/18 07/05/18 07/05/18 07/05/18 09:09 09:11 11:00 16:21 Temp 97.8 98.1 Pulse 81 81 69 71 Resp 18 20 B/P (MAP) 140/76 140/76 121/69 (86) 123/71 (88) Pulse Ox 98 97 O2 Delivery Room Air Room Air 07/05/18 07/05/18 07/05/18 07/06/18 19:42 20:00 22:28 05:22 Temp 97.9 98.5 97.6 Pulse 89 57 73 Resp 18 20 22 B/P (MAP) 132/74 (93) 145/66 (92) 127/74 (91) Pulse Ox 98 97 97 O2 Delivery Room Air Room Air Room Air Room Air 07/06/18 07/06/18 07/06/18 07/06/18 08:12 08:14 08:47 08:47 Pulse 84 84 84 B/P (MAP) 127/74 127/74 O2 Delivery Room Air Intake and Output 07/05/18 07/05/18 07/06/18 15:00 23:00 07:00 Intake Total 240 ml 300 ml Output Total 300 ml 500 ml Balance -60 ml -500 ml 300 ml APARNA VERDE APRN Jul 06, 2018 09:04
[2018-07-06 10:21] VITALS: BP 112/69
[2018-07-06] MEDS ORDERED: ENOXAPARIN ** NOTE DOSE ** SYRINGE SQ ONE (10:30)
--- NOTE | 2018-07-06 11:00 | NUR ---
Pt discharged to [facility]. Report given to SAMI Pires. IV removed without complication. Pt's daughter Vanessa present at time of discharge and is aware of dc plan. Pt was given shower before discharge. Per orders from KYRIE Shaw, pt was given first dose of Lovenox before discharge. Pt is to have lovenox daily until INR is therapeutic. Directions were given to nurse at [facility] to resume home dose of Coumadin (5mg) today and recheck INR on Tuesday 07/10, then weekly. Nurse responded that 'they do things differently there so they will change that order when he arrives'. Explained to nurse that this is how cardiology wants it done and Dr Garcia is aware so it needs to please be done this way. Nurse verbalized understanding.
--- NOTE | 2018-07-06 14:31 | PN ---
DATE: 07/05/2018 This late entry 07/05/2018 covers elements not covered in my initial note. SUBJECTIVE: I met with the patient in his room on the evening of 07/05/2018. CT head shows some atrophy, but no acute changes. No intracranial hemorrhage. Overall, the patient continues to have short-term memory deficits, but no active hallucinations noted and he slept better. No CV, , pulmonary, eye system symptoms on review. MENTAL STATUS EXAM: Oriented to himself and situation. Speech has some latency, coherent. Abstraction fair, computation impaired, language function intact. Short term memory is impaired. No suicidal or homicidal ideation. LABORATORY DATA: Reviewed. IMPRESSION: Major neurocognitive disorder, early Alzheimer, vascular with depression, delusions and psychotic disorder, unspecified; anxiety disorder, unspecified. PLAN: Reviewed current psychotropics, no change for now from initial note. MAN Liborio MERCHANT MD DR: RADHA/kimi JOB#: [id number] / [id number]
[2018-07-07] MEDS ORDERED: FUROSEMIDE 20 MG TABLET PO SCH (09:00)
== END 2018-07-06 11:09 | DRG 205 ==
LOC: ER 16:43 → 1 SOUTH 18:44
PROVIDERS: ADMIT Internal Medicine; ATTEND Internal Medicine
DX: S22.32XA Fracture of one rib, left side, initial encounter for closed fracture (principal); N17.0 Acute kidney failure with tubular necrosis; F05 Delirium due to known physiological condition; I13.0 Hypertensive heart and chronic kidney disease with heart failure and stage 1 through stage 4 chronic kidney disease, or unspecified chronic kidney disease; E78.00 Pure hypercholesterolemia, unspecified; E78.5 Hyperlipidemia, unspecified; F01.50 Vascular dementia, unspecified severity, without behavioral disturbance, psychotic disturbance, mood disturbance, and anxiety; F02.80 Dementia in other diseases classified elsewhere, unspecified severity, without behavioral disturbance, psychotic disturbance, mood disturbance, and anxiety; F32.9 Major depressive disorder, single episode, unspecified; F41.9 Anxiety disorder, unspecified; F63.9 Impulse disorder, unspecified; G30.9 Alzheimer's disease, unspecified; I25.5 Ischemic cardiomyopathy; I48.91 Unspecified atrial fibrillation; I50.9 Heart failure, unspecified; N28.1 Cyst of kidney, acquired; Z96.653 Presence of artificial knee joint, bilateral; M19.90 Unspecified osteoarthritis, unspecified site; W18.30XA Fall on same level, unspecified, initial encounter; E11.22 Type 2 diabetes mellitus with diabetic chronic kidney disease; N18.9 Chronic kidney disease, unspecified; I25.10 Atherosclerotic heart disease of native coronary artery without angina pectoris; I25.2 Old myocardial infarction; Z79.01 Long term (current) use of anticoagulants; Z85.038 Personal history of other malignant neoplasm of large intestine; Z87.891 Personal history of nicotine dependence; Z90.49 Acquired absence of other specified parts of digestive tract; Z93.3 Colostomy status; Z95.810 Presence of automatic (implantable) cardiac defibrillator; Z95.5 Presence of coronary angioplasty implant and graft; Z98.41 Cataract extraction status, right eye; Z98.42 Cataract extraction status, left eye; Z79.899 Other long term (current) drug therapy; Z91.041 Radiographic dye allergy status; Y93.89 Activity, other specified; Y99.8 Other external cause status; Y92.009 Unspecified place in unspecified non-institutional (private) residence as the place of occurrence of the external cause; R07.89 Other chest pain
CPT/HCPCS: 36415; 70450; 71045; 71100; 71250; 74150; 80053; 81001; 82550; 82947; 83690; 83735; 83880; 84484; 85025; 85610; 85730; 90471; 90756; 93005; J1650; 99285-25; Q2035